=== PATIENT | male | born 1960 | race Asian ===

== ENCOUNTER → 2016-09-27 | Outpatient (CLI) | payer BC ==
[~2016-09-27] MED LIST: GLIP-116 PO; RAMI10CA38 PO; ROSU10TA16 PO; SITA50TA28 PO
[2016-09-27 09:18] LABS: Basophils # (auto) 0 uL; Basophils % (auto) 0.4 % (0.0-2.0); Eosinophils # (auto) 0.1 uL; Eosinophils % (auto) 1.1 % (0.0-7.0); Hematocrit 42.9 % (41.0-53.0); Lymphocytes % (auto) 45.1 % (10.0-50.0); Mean Corpuscular Hemoglobin 28.5 pg (28.0-32.0); Mean Corpuscular Hgb Conc. 32.7 g/dL (32.0-36.0); Mean Corpuscular Volume 87.2 fL (80.0-100.0); Mean Platelet Volume 8.9 fL (7.4-10.4); Monocytes # (auto) 0.4 uL; Monocytes % (auto) 5.5 % (0.0-12.0); Neutrophils # (auto) 3.2 uL; Neutrophils % (auto) 47.9 % (37.0-80.0); Platelet Count (auto) 278 10^3/uL (140-450); Red Cell Distribution Width 13.7 % (11.6-16.0); White Blood Cell 6.6 10^3/uL (4.4-10.8)
[2016-09-27 09:46] LABS: Albumin 3.9 g/dL (3.4-5.0); BUN/Creatinine Ratio 22.5; Bilirubin, Total 0.5 mg/dL (0.2-1.0); Calcium 8.9 mg/dL (8.5-10.1); Potassium 4.1 mmol/L (3.5-5.1); Total Protein 7.3 g/dL (6.4-8.2)
[2016-09-27 10:03] LABS: Urine Protein/Creatinine Ratio 0.17
== END | disposition home or self-care (01) ==
LOC: LAB 07:40
DX: E55.9 Vitamin D deficiency, unspecified (principal); E53.8 Deficiency of other specified B group vitamins; E11.22 Type 2 diabetes mellitus with diabetic chronic kidney disease; E78.2 Mixed hyperlipidemia; N18.2 Chronic kidney disease, stage 2 (mild)
CPT/HCPCS: 36415; 80053; 82043; 82306; 82570; 82607; 83036; 84156; 84443; 85025

== ENCOUNTER → 2017-03-29 | Outpatient (CLI) | payer BC ==
[2017-03-29 08:28] LABS: Basophils # (auto) 0 uL; Basophils % (auto) 0.4 % (0.0-2.0); Eosinophils # (auto) 0.1 uL; Eosinophils % (auto) 0.8 % (0.0-7.0); Hematocrit 41.1 % (41.0-53.0); Lymphocytes # (auto) 1.9 uL; Lymphocytes % (auto) 22.9 % (10.0-50.0); Mean Corpuscular Hemoglobin 29.8 pg (28.0-32.0); Mean Corpuscular Hgb Conc. 34.1 g/dL (32.0-36.0); Mean Corpuscular Volume 87.5 fL (80.0-100.0); Mean Platelet Volume 7.9 fL (6.9-10.8); Monocytes # (auto) 0.4 uL; Monocytes % (auto) 5.1 % (0.0-12.0); Neutrophils # (auto) 5.8 uL; Neutrophils % (auto) 70.8 % (37.0-80.0); Platelet Count (auto) 245 10^3/uL (140-450); Red Cell Distribution Width 13.6 % (11.8-14.3); White Blood Cell 8.2 10^3/uL (4.4-10.8)
[2017-03-29 09:28] LABS: BUN/Creatinine Ratio 18.1; Bilirubin, Total 0.5 mg/dL (0.2-1.0); Calcium 9.1 mg/dL (8.5-10.1); Potassium 4.4 mmol/L (3.5-5.1); Total Protein 7.6 g/dL (6.4-8.2)
== END | disposition home or self-care (01) ==
LOC: LAB 08:07
DX: E78.2 Mixed hyperlipidemia (principal); E11.22 Type 2 diabetes mellitus with diabetic chronic kidney disease; I12.9 Hypertensive chronic kidney disease with stage 1 through stage 4 chronic kidney disease, or unspecified chronic kidney disease; N18.2 Chronic kidney disease, stage 2 (mild); Z79.899 Other long term (current) drug therapy
CPT/HCPCS: 36415; 80053; 80061; 82043; 82306; 82570; 82607; 83036; 84443; 85025

== ENCOUNTER 2017-07-23 05:25 | Emergency (ER) | payer BC ==
[~2017-07-23] VITALS: Ht 165.1 cm; Wt 59.0 kg
[2017-07-23 05:55] LABS: Basophils # (auto) 0.1 uL; Basophils % (auto) 0.5 % (0.0-2.0); Eosinophils # (auto) 0.1 uL; Eosinophils % (auto) 0.5 % (0.0-7.0); Hematocrit 42.8 % (41.0-53.0); Hemoglobin 14.3 g/dL (13.5-17.5); Lymphocytes # (auto) 2.4 uL; Lymphocytes % (auto) 20.1 % (10.0-50.0); Mean Corpuscular Hemoglobin 29.2 pg (28.0-32.0); Mean Corpuscular Hgb Conc. 33.5 g/dL (32.0-36.0); Mean Corpuscular Volume 87.3 fL (80.0-100.0); Monocytes # (auto) 0.5 uL; Monocytes % (auto) 4.1 % (0.0-12.0); Neutrophils # (auto) 8.8 uL; Neutrophils % (auto) 74.8 % (37.0-80.0); Platelet Count (auto) 248 10^3/uL (140-450); Red Blood Cells 4.91 10^6/uL (4.5-5.90); Red Cell Distribution Width 13.6 % (11.8-14.3); White Blood Cell 11.8 10^3/uL (4.4-10.8)
[2017-07-23] MEDS ORDERED: HYDROmorphone HCL 2 MG/ML VL ONE (05:59)
[2017-07-23] MEDS ORDERED: ONDANSETRON HCL 4 MG/2 ML VIAL IV ONE (06:00)
[2017-07-23] MEDS ORDERED: HYDROmorphone HCL 2 MG/ML VL IV ONE (06:00)
[2017-07-23] MEDS ORDERED: SODIUM CHLORIDE 0.9% 1,000 ML IV ONE ×3 (06:00→06:49)
[2017-07-23 06:17] LABS: Alanine Aminotransferase 32 U/L (16-61); Albumin 4.1 g/dL (3.4-5.0); Alkaline Phosphatase 55 U/L (45-117); Amylase 76 U/L (25-115); Anion Gap 12 (5-15); Aspartate Aminotransferase 18 U/L (15-37); BUN/Creatinine Ratio 18.1; Bilirubin, Total 0.4 mg/dL (0.2-1.0); Blood Urea Nitrogen 19 mg/dL (7-18); Calcium 8.8 mg/dL (8.5-10.1); Carbon Dioxide 26 mmol/L (21-32); Chloride 102 mmol/L (98-107); GFR African American 94 mL/min; GFR Non-African American 77 mL/min; Glucose 202 mg/dL (74-106); Lipase 300 U/L (73-393); Magnesium 2.3 mg/dL (1.6-2.6); Potassium 3.6 mmol/L (3.5-5.1); Sodium 140 mmol/L (136-145); Total Protein 7.9 g/dL (6.4-8.2)
[2017-07-23] MEDS ORDERED: KETOROLAC TROMETH 30 MG/ML 1ML VIAL IV ONE ×2 (07:00→10:15)
[2017-07-23] MEDS ORDERED: PROMETHAZINE HCL 25 MG/ML 1ML IV ONE (07:00)
[2017-07-23] MEDS ORDERED: PIPERACILLIN-TAZOB 3.375GM 50 ML IV ONE (07:00)
[2017-07-23] MEDS ORDERED: InsuLIN REG 1unit/0.01ml Soln (100units/ml) SC ONE (09:15)
[2017-07-23] MEDS ORDERED: TAMSULOSIN HYDROCHLORIDE 0.4 MG CAP PO ONE (12:00)
[2017-07-23 15:26] VITALS: BP 98/58
== END 2017-07-23 15:45 | disposition home or self-care (01) ==
LOC: EDUNIT# 05:27 → ER 05:27
DX: N20.0 Calculus of kidney (principal); E11.9 Type 2 diabetes mellitus without complications; Z90.49 Acquired absence of other specified parts of digestive tract
CPT/HCPCS: 36415; 74176; 76705; 76870; 80053; 82150; 83036; 83690; 83735; 84484; 85025; 87040; 93005; 93306; 96361; 96365; 96366; 96372; 96375; 96376; 99285; J1170; J1815; J1885; J2405; J2543; J2550; J7030

== ENCOUNTER → 2017-10-05 | Day surgery (SDC) | payer BC ==
[2017-10-02 11:42] LABS: Basophils # (auto) 0 uL; Basophils % (auto) 0.3 % (0.0-2.0); Eosinophils # (auto) 0.1 uL; Eosinophils % (auto) 1.1 % (0.0-7.0); Hemoglobin 13.8 g/dL (13.5-17.5); Lymphocytes # (auto) 2.9 uL; Lymphocytes % (auto) 26.6 % (10.0-50.0); Mean Corpuscular Hemoglobin 28.1 pg (28.0-32.0); Mean Corpuscular Hgb Conc. 32.9 g/dL (32.0-36.0); Mean Corpuscular Volume 85.6 fL (80.0-100.0); Monocytes # (auto) 0.5 uL; Monocytes % (auto) 4.1 % (0.0-12.0); Neutrophils # (auto) 7.4 uL; Neutrophils % (auto) 67.9 % (37.0-80.0); Nucleated Red Blood Cells % 0.1 %; Platelet Count (auto) 311 10^3/uL (140-450); Red Cell Distribution Width 13.5 % (11.8-14.3)
[2017-10-02 11:43] LABS: Urine Bacteria NONE SEEN /hpf (None Seen); Urine Blood Negative /uL (Negative); Urine Specific Gravity 1.008 (1.001-1.035); Urine WBC 2 /hpf (0 - 3)
[2017-10-02 11:57] LABS: INR 0.97 (0.9-1.15); Partial Thromboplastin Time 27.8 sec (22.64-33.71); Prothrombin Time 10.6 sec (9.37-12.3)
[~2017-10-05] VITALS: Ht 162.6 cm; Wt 59.0 kg
[~2017-10-05] MED LIST changes: +ASPI81TA27 PO; +FLUMAZENIL 0.1 MG/ML INJ 10ML MDV IV ONE; +LIDOCAINE VISCOUS 2% 15ML UD ONE; +NALOXONE HCL 0.4 MG/ML VIAL ONE; +diphenhdrAMINE HCL 50 MG/1 ML VL ONE
[2017-10-05] MEDS: fentaNYL CITRATE 100 MCG/2 ML VL ONE ×3 (08:58→09:05)
[2017-10-05] MEDS: MIDAZOLAM HCL 5 MG/ML-1ML VIAL ONE ×3 (08:58→09:05)
[2017-10-05 09:46] VITALS: BP 128/83
== END | disposition home or self-care (01) ==
LOC: GI 07:44
PROVIDERS: ATTEND Internal Medicine Gastroenterology
DX: Z12.11 Encounter for screening for malignant neoplasm of colon (principal); K64.8 Other hemorrhoids; K29.70 Gastritis, unspecified, without bleeding; E66.9 Obesity, unspecified; Z90.49 Acquired absence of other specified parts of digestive tract; Z88.0 Allergy status to penicillin
CPT/HCPCS: 36415; 43239; 45378; 81001; 82962; 85025; 85610; 85730; J1200; J2250; J3010; J7030; 99152

== ENCOUNTER → 2018-01-25 | Outpatient (CLI) | payer BC ==
[~2018-01-25] MED LIST changes: -FLUMAZENIL 0.1 MG/ML INJ 10ML MDV IV ONE; -LIDOCAINE VISCOUS 2% 15ML UD ONE; -NALOXONE HCL 0.4 MG/ML VIAL ONE; -diphenhdrAMINE HCL 50 MG/1 ML VL ONE
[2018-01-25 09:17] LABS: Urine WBC None Seen /hpf (0 - 3)
[2018-01-25 09:33] LABS: Basophils # (auto) 0 uL; Basophils % (auto) 0.4 % (0.0-2.0); Eosinophils # (auto) 0.1 uL; Eosinophils % (auto) 1.3 % (0.0-7.0); Hematocrit 42.7 % (41.0-53.0); Hemoglobin 14.3 g/dL (13.5-17.5); Lymphocytes # (auto) 2.5 uL; Lymphocytes % (auto) 36.9 % (10.0-50.0); Mean Corpuscular Hemoglobin 28.7 pg (28.0-32.0); Mean Corpuscular Hgb Conc. 33.5 g/dL (32.0-36.0); Mean Corpuscular Volume 85.6 fL (80.0-100.0); Monocytes # (auto) 0.4 uL; Monocytes % (auto) 6.2 % (0.0-12.0); Neutrophils # (auto) 3.8 uL; Neutrophils % (auto) 55.2 % (37.0-80.0); Nucleated Red Blood Cells % 0.1 %; Platelet Count (auto) 257 10^3/uL (140-450); Red Blood Cells 4.98 10^6/uL (4.5-5.90); Red Cell Distribution Width 14.2 % (11.8-14.3); White Blood Cell 6.8 10^3/uL (4.4-10.8)
[2018-01-25 10:03] LABS: Urine Bacteria NONE SEEN /hpf (None Seen); Urine Blood Negative /uL (Negative); Urine Specific Gravity 1.013 (1.001-1.035)
[2018-01-25 10:13] LABS: BUN/Creatinine Ratio 14.8; Bilirubin, Total 0.4 mg/dL (0.2-1.0); Potassium 4.3 mmol/L (3.5-5.1); Total Protein 7.9 g/dL (6.4-8.2); Uric Acid 5.8 mg/dL (3.5-7.2)
== END | disposition home or self-care (01) ==
LOC: LAB 08:18
PROVIDERS: ATTEND Internal Medicine
DX: E11.22 Type 2 diabetes mellitus with diabetic chronic kidney disease (principal); I12.9 Hypertensive chronic kidney disease with stage 1 through stage 4 chronic kidney disease, or unspecified chronic kidney disease; N18.2 Chronic kidney disease, stage 2 (mild); Z79.82 Long term (current) use of aspirin
CPT/HCPCS: 36415; 80053; 80061; 81001; 82043; 82306; 83036; 83970; 84153; 84550; 85025

== ENCOUNTER → 2018-10-16 | Outpatient (CLI) | payer BC ==
[2018-10-16 09:53] LABS: Albumin 4.1 g/dL (3.4-5.0); Calcium 9.3 mg/dL (8.5-10.1); Potassium 4.6 mmol/L (3.5-5.1)
[2018-10-16 09:56] LABS: BUN/Creatinine Ratio 21.1; Bilirubin, Total 0.5 mg/dL (0.2-1.0); Total Protein 7.7 g/dL (6.4-8.2)
== END | disposition home or self-care (01) ==
LOC: LAB 08:24
DX: E10.65 Type 1 diabetes mellitus with hyperglycemia (principal)
CPT/HCPCS: 36415; 80053; 82043; 82570; 83036

== ENCOUNTER → 2019-06-25 | Outpatient (CLI) | payer BC ==
[~2019-06-25] MED LIST changes: +ASPI-404 PO; -ASPI81TA27 PO; -GLIP-116 PO; +GLIP10TA9 PO
[2019-06-25 09:49] LABS: Basophils # (auto) 0 uL; Basophils % (auto) 0.7 % (0.0-2.0); Eosinophils # (auto) 0.1 uL; Eosinophils % (auto) 1.7 % (0.0-7.0); Hematocrit 41.1 % (41.0-53.0); Lymphocytes # (auto) 2.4 uL; Lymphocytes % (auto) 50.2 % (10.0-50.0); Mean Corpuscular Hgb Conc. 34.1 g/dL (32.0-36.0); Mean Corpuscular Volume 88.1 fL (80.0-100.0); Monocytes # (auto) 0.3 uL; Monocytes % (auto) 6.7 % (0.0-12.0); Neutrophils % (auto) 40.7 % (37.0-80.0); Nucleated Red Blood Cells % 0.2 %; Platelet Count (auto) 240 10^3/uL (140-450); Red Blood Cells 4.67 10^6/uL (4.5-5.90); Red Cell Distribution Width 13.1 % (11.8-14.3); White Blood Cell 4.8 10^3/uL (4.4-10.8)
[2019-06-25 09:52] LABS: Urine Bacteria NONE SEEN /hpf (None Seen); Urine Blood Negative /uL (Negative); Urine Mucus FEW (None Seen); Urine Specific Gravity 1.011 (1.001-1.035); Urine WBC <1 /hpf (0 - 3)
[2019-06-25 10:17] LABS: BUN/Creatinine Ratio 17.2; Calcium 9.4 mg/dL (8.5-10.1); Potassium 4.6 mmol/L (3.5-5.1)
[2019-06-25 10:22] LABS: Bilirubin, Total 0.5 mg/dL (0.2-1.0); Total Protein 7.5 g/dL (6.4-8.2)
== END | disposition home or self-care (01) ==
LOC: LAB 09:22
PROVIDERS: ATTEND Internal Medicine
DX: Z12.11 Encounter for screening for malignant neoplasm of colon (principal); Z12.5 Encounter for screening for malignant neoplasm of prostate; K76.0 Fatty (change of) liver, not elsewhere classified; E11.29 Type 2 diabetes mellitus with other diabetic kidney complication; R80.9 Proteinuria, unspecified
CPT/HCPCS: 36415; 80053; 80061; 81001; 82043; 83036; 84153; 84443; 85025

== ENCOUNTER → 2019-07-09 | Outpatient (CLI) | payer BC | END | disposition home or self-care (01) | LOC: LAB 10:41 | PROVIDERS: ATTEND Internal Medicine | DX: Z12.11 Encounter for screening for malignant neoplasm of colon (principal); E11.29 Type 2 diabetes mellitus with other diabetic kidney complication; K76.0 Fatty (change of) liver, not elsewhere classified; R80.9 Proteinuria, unspecified | CPT/HCPCS: 82270 ==

== ENCOUNTER 2019-12-13 23:05 | Inpatient (IN) | payer BC ==
[~2019-12-13] VITALS: Ht 160 cm; Wt 62.0 kg
[~2019-12-13 23:05] MED LIST changes: -ASPI-404 PO; +ASPI-543 PO; +GLYB2.5T71 OR; +GLYB2.5T8 OR; +METF-370 OR; +PIOG30TA20 OR; +RAMI2.5T OR; +ROSU10TA16 OR; +SITA100T7 OR
--- NOTE | 2019-12-13 23:05 | NUR ---
arrival note pt arrived via gurney, and was transferred to hospital bed. pt on 4Lnc. respirations even and nonlabored on 2Lnc.
[2019-12-13 23:30] VITALS: BP 135/77
[2019-12-14] VITALS (7 sets, daily range): BP systolic 125–140; BP diastolic 73–84
--- NOTE | 2019-12-14 | NUR ---
DR SEAY paged for orders new orders received, readback and verified.
[2019-12-14] MEDS ORDERED: NITROGLYCERIN 0.4 MG SL TAB SL PRN (00:30)
[2019-12-14] MEDS ORDERED: DEXTROSE (50%) 50ML SYRG IV PRN ×2 (01:00→09:00)
[2019-12-14] MEDS: HYDROcodone-ACET 5/325MG TAB PO PRN ×3 (01:46→21:37)
[2019-12-14] MEDS: ACCU-CHEK COMFORT CURVE STRIP VI SCH ×4 (06:30→21:36)
[2019-12-14] MEDS: InsuLIN REG 1unit/0.01ml Soln (100units/ml) SC SCH ×4 (06:32→21:39)
--- NOTE | 2019-12-14 07:16 | NUR ---
closing note pt watching television in semi fowlers with HOB at 30 degrees. condom catheter in place, patent, and draining to gravity. no complaints of discomfort at this time. Endorsed care to day shift RN.
--- NOTE | 2019-12-14 07:30 | NUR ---
Opening Shift Note Assumed care of patient, awake and alert. No S/S of distress/SOB. Pain management options discussed with patient. NG tube in place and locked. Instructed on POC and to call for assist PRN, will continue to monitor for changes Q1hr and PRN.
[2019-12-14] MEDS ORDERED: TEMAZEPAM 15 MG CAP PO PRN (09:00)
[2019-12-14] MEDS ORDERED: LACTULOSE 20Gm/30ML SOLN PO PRN (09:00)
[2019-12-14] MEDS ORDERED: ALBUTEROL SULF 2.5 MG/0.5ML(0.5%) NEB SOLN NEB PRN (09:00)
[2019-12-14] MEDS ORDERED: LABETALOL HCL 5 MG/ML ML 20ML VIAL IV PRN (09:00)
[2019-12-14] MEDS ORDERED: ACETAMINOPHEN 500 MG TAB PO PRN (09:00)
[2019-12-14] MEDS ORDERED: ONDANSETRON HCL 4 MG/2 ML VIAL IV PRN (09:00)
[2019-12-14] MEDS ORDERED: PANTOPRAZOLE 40 MG/10 ML VIAL INJ IV SCH (10:00)
[2019-12-14] MEDS ORDERED: ALBUTEROL SULF 2.5 MG/0.5ML(0.5%) NEB SOLN NEB SCH (10:00)
[2019-12-14] MEDS ORDERED: IPRATROPIUM BROM 0.5 MG/2.5ML INH SOL NEB SCH (10:00)
[2019-12-14] MEDS: levoFLOXacin 500MG 100 ML IV SCH (10:19)
[2019-12-14] MEDS: SODIUM CHLORIDE 0.9% 1,000 ML IV SCH ×2 (10:19→22:51)
[2019-12-14] MEDS: ASPirin 81 mg TAB PO SCH (10:20)
--- NOTE | 2019-12-14 10:30 | NUR ---
PATIENT MOVED BACK TO BED FROM SITTING IN CHAIR AT BEDSIDE. STANDBY ASSISTANCE. PATIENT TOLERATED TRANSFER WELL.
--- NOTE | 2019-12-14 11:04 | NUR ---
SWALLOW EVALUATED. PATIENT HAS NATURAL TEETH, UPPER AND LOWER. PATIENT ABLE TO FOLLOW DIRECTIONS. PATIENT ABLE TO TOLERATE MECHANICAL SOFT DIET TEXTURE WITH THIN LIQUIDS WITH NO OVERT SIGNS OR SYMPTOMS OF ASPIRATION. NURSING NOTIFIED.
[2019-12-14] MEDS: ALBUTEROL SULF 2.5 MG/0.5ML(0.5%) NEB SOLN NEB SCH ×2 (11:08→18:04)
[2019-12-14] MEDS: IPRATROPIUM BROM 0.5 MG/2.5ML INH SOL NEB SCH ×2 (11:08→18:04)
--- NOTE | 2019-12-14 11:28 | NUR ---
NG TUBE REMOVED FROM LEFT NARE. PATIENT TOLERATING PO AND PASSED SWALLOW EVALUATION. ORDERS RECEIVED FROM DR. GUTIERREZ TO REMOVE THE NG TUBE.
[2019-12-14 11:56] LABS: Basophils # (auto) 0.1 10 ^3/uL (0-0.2); Basophils % (auto) 0.4 % (0.0-2.0); Eosinophils # (auto) 0 10 ^3/uL (0-0.8); Eosinophils % (auto) 0.2 % (0.0-7.0); Hematocrit 28.5 % (41.0-53.0); Hemoglobin 9.4 g/dL (13.5-17.5); Lymphocytes # (auto) 1.4 10 ^3/uL (0.4-5.4); Lymphocytes % (auto) 7.4 % (10.0-50.0); Mean Corpuscular Hgb Conc. 32.9 g/dL (32.0-36.0); Mean Corpuscular Volume 88.1 fL (80.0-100.0); Monocytes # (auto) 1.4 10 ^3/uL (0-1.3); Monocytes % (auto) 7.5 % (0.0-12.0); Neutrophils # (auto) 15.9 10 ^3/uL (1.6-8.6); Neutrophils % (auto) 84.5 % (37.0-80.0); Nucleated Red Blood Cells % 0.1 %; Platelet Count (auto) 322 10^3/uL (140-450); Red Blood Cells 3.24 10^6/uL (4.5-5.90); Red Cell Distribution Width 15.1 % (11.8-14.3); White Blood Cell 18.8 10^3/uL (4.4-10.8)
[2019-12-14 12:12] LABS: INR 1.13 (0.9-1.15); Partial Thromboplastin Time 25.4 sec (23.64-32.05)
[2019-12-14 12:17] LABS: Albumin 1.8 g/dL (3.4-5.0); Calcium 7.8 mg/dL (8.5-10.1); Magnesium 2.9 mg/dL (1.6-2.6); Potassium 3.5 mmol/L (3.5-5.1)
[2019-12-14 12:20] LABS: BUN/Creatinine Ratio 45.5; Bilirubin, Total 0.9 mg/dL (0.2-1.0); Total Protein 5.5 g/dL (6.4-8.2)
--- NOTE | 2019-12-14 14:45 | NUR ---
CONDOM CATHETER BECAME DISLODGED. PATIENT GIVEN URINAL AND ENCOURAGED TO USE IT. WILL CONTINUE TO MONITOR AND SEE IF THE PATIENT CAN TOLERATE USING URINAL.
--- NOTE | 2019-12-14 15:00 | NUR ---
PATIENT WAS ALREADY OUT OF BED X 2 TODAY. PATIENT REQUESTS P.T. EVALUATION BE DONE TOMORROW.
[2019-12-14] MEDS: ATORVASTATIN 20 MG TAB PO SCH (17:44)
--- NOTE | 2019-12-14 18:27 | NUR ---
Dr. Matt at bedside.
--- NOTE | 2019-12-14 19:15 | NUR ---
opening note pt A&Ox4. respirations even and nonlabored on 2Lnc. no complaints of pain or discomfort at this time, will continue to monitor. POC discussed with pt. verbalized understanding. bed in low locked position, call light within reach.
[2019-12-15] MEDS: ALBUTEROL SULF 2.5 MG/0.5ML(0.5%) NEB SOLN NEB SCH ×4 (00:24→18:01)
[2019-12-15] MEDS: IPRATROPIUM BROM 0.5 MG/2.5ML INH SOL NEB SCH ×4 (00:24→18:01)
--- NOTE | 2019-12-15 02:01 | NUR ---
pt up to bedside chair.
[2019-12-15 04:52] VITALS: BP 122/81
[2019-12-15] MEDS: ACCU-CHEK COMFORT CURVE STRIP VI SCH ×4 (06:09→22:12)
[2019-12-15] MEDS: InsuLIN REG 1unit/0.01ml Soln (100units/ml) SC SCH ×4 (06:16→22:22)
--- NOTE | 2019-12-15 07:25 | NUR ---
respiratory culture sent
--- NOTE | 2019-12-15 07:26 | NUR ---
CLOSING NOTE pt is sitting in bedside chair, watching tv. respirations are even and nonlabored on 2Lnc. no c/o of pain or discomfort at this time. endorsed care to day shift RN.
--- NOTE | 2019-12-15 07:40 | NUR ---
OPENING SHIFT NOTE: PATIENT RESTING AT SIDE OF THE BED IN CHAIR. UPDATED ON PLAN OF CARE. PATIENT VERBALIZED UNDERSTANDING. PAIN REPORTING 6/10 LEFT ARM. WILL MEDICATED ORDERED. THIS RN ADDRESSED CONCERNS, ASISTED WITH HOT WASH CLOTH PARTIAL UPPER BODY BATH. PATIENT CALL LIGHT PLACED WITHIN REACH, FALL PRECAUTIONS IN PLACE. WILL CONTINUE TO MONITOR.
--- NOTE | 2019-12-15 08:10 | NUR ---
MD. Roshni TRNA.
--- NOTE | 2019-12-15 08:40 | NUR ---
MD KUHN ROUNDING.
[2019-12-15] MEDS: HYDROcodone-ACET 5/325MG TAB PO PRN ×3 (09:03→23:17)
[2019-12-15] MEDS: ASPirin 81 mg TAB PO SCH (09:03)
[2019-12-15 09:09] VITALS: BP 137/80
--- NOTE | 2019-12-15 10:03 | NUR ---
PATIENT BACK FROM MRI.
--- NOTE | 2019-12-15 10:10 | NUR ---
FULL LINEN CHANGE COMPLETE. FULL BED BATH. PATIENT TOLERATED WELL.
[2019-12-15] MEDS: levoFLOXacin 500MG 100 ML IV SCH (10:15)
--- NOTE | 2019-12-15 11:30 | NUR ---
URINE SENT TO LAB
[2019-12-15] MEDS: Glucerna Carbsteady SHAKE Vanilla 8oz PO SCH ×2 (12:00→17:52)
[2019-12-15 12:28] VITALS: BP 125/77
[2019-12-15 14:35] LABS: Urine Bacteria NONE SEEN /hpf (None Seen); Urine Blood 1+ /uL (Negative); Urine Specific Gravity 1.034 (1.001-1.035); Urine WBC 3 /hpf (0 - 3)
--- NOTE | 2019-12-15 15:38 | NUR ---
PER MD Roshni GUTIERREZ PATIENT, "SHOULD HAVE NOTED PENICILLIN ALLERGY ON THE CHART, PATIENT HAD MILD DIARRHEA PROBABLY FROM THE PENICILLIN, PATIENT SHOULD BE ON LEVAQUIN ONLY."
--- NOTE | 2019-12-15 16:07 | NUR ---
PATIENT BACK IN BED FROM AMBULATING WITH PT. FULL FACE SHAVED. PATIENT TOLERATED WELL.
[2019-12-15 16:51] VITALS: BP 147/86
[2019-12-15] MEDS: ATORVASTATIN 20 MG TAB PO SCH (17:52)
--- NOTE | 2019-12-15 19:30 | NUR ---
Opening Shift Note Assumed care of patient, awake and alert x4. No S/S of distress/SOB or pain. Splint to the left arm. Call light is within reach, side rails up x2, bed is in lowest position. Instructed on POC and to call for assist PRN, will continue to monitor for changes Q1hr and PRN.
[2019-12-15 22:00] VITALS: BP 121/75
[2019-12-15] MEDS ORDERED: AMOXICILLIN/CLAVUL 875 MG TAB PO SCH (22:00)
--- NOTE | 2019-12-15 22:20 | NUR ---
Patient is up in the chair. Call light is within reach.
--- NOTE | 2019-12-15 23:00 | NUR ---
Patient assisted back to bed and positioned for comfort, call light is within reach.
--- NOTE | 2019-12-16 | NUR ---
Respiratory note: SCHEDULED MED NEB TX NOT GIVEN. PT WAS ASLEEP, NO RESP DISTRESS NOTED. PT WOKE UP AND STATED HE DID NOT WANT TX AT THIS TIME.
[2019-12-16 05:00] VITALS: BP 110/77
[2019-12-16] MEDS: IPRATROPIUM BROM 0.5 MG/2.5ML INH SOL NEB SCH ×4 (05:40→18:34)
[2019-12-16] MEDS: ALBUTEROL SULF 2.5 MG/0.5ML(0.5%) NEB SOLN NEB SCH ×4 (05:40→18:35)
[2019-12-16] MEDS: ACCU-CHEK COMFORT CURVE STRIP VI SCH ×2 (06:45→17:33)
[2019-12-16] MEDS: InsuLIN REG 1unit/0.01ml Soln (100units/ml) SC SCH ×2 (07:00→17:56)
[2019-12-16] MEDS: Glucerna Carbsteady SHAKE Vanilla 8oz PO SCH ×2 (08:03→12:26)
[2019-12-16 09:00] VITALS: BP 145/90
[2019-12-16] MEDS: ASPirin 81 mg TAB PO SCH (09:34)
[2019-12-16] MEDS: HYDROcodone-ACET 5/325MG TAB PO PRN (09:39)
[2019-12-16] MEDS ORDERED: DEXTROSE (50%) 50ML SYRG IV PRN (10:00)
[2019-12-16] MEDS ORDERED: levoFLOXacin 500MG 100 ML IV ONE (10:00)
[2019-12-16 10:33] LABS: Basophils # (auto) 0 10 ^3/uL (0-0.2); Basophils % (auto) 0.2 % (0.0-2.0); Eosinophils # (auto) 0.1 10 ^3/uL (0-0.8); Eosinophils % (auto) 0.4 % (0.0-7.0); Hematocrit 29.9 % (41.0-53.0); Hemoglobin 9.7 g/dL (13.5-17.5); Lymphocytes # (auto) 1.5 10 ^3/uL (0.4-5.4); Lymphocytes % (auto) 7.9 % (10.0-50.0); Mean Corpuscular Hemoglobin 28.9 pg (28.0-32.0); Mean Corpuscular Hgb Conc. 32.5 g/dL (32.0-36.0); Monocytes # (auto) 0.9 10 ^3/uL (0-1.3); Monocytes % (auto) 4.6 % (0.0-12.0); Neutrophils # (auto) 16.3 10 ^3/uL (1.6-8.6); Neutrophils % (auto) 86.9 % (37.0-80.0); Nucleated Red Blood Cells % 0.1 %; Platelet Count (auto) 445 10^3/uL (140-450); Red Blood Cells 3.36 10^6/uL (4.5-5.90); Red Cell Distribution Width 15.6 % (11.8-14.3); White Blood Cell 18.7 10^3/uL (4.4-10.8)
[2019-12-16 10:46] LABS: Calcium 7.9 mg/dL (8.5-10.1); INR 1.12 (0.9-1.15); Potassium 3.8 mmol/L (3.5-5.1)
[2019-12-16 10:51] LABS: BUN/Creatinine Ratio 28.9; Bilirubin, Total 0.9 mg/dL (0.2-1.0); Total Protein 6.2 g/dL (6.4-8.2)
[2019-12-16 11:21] LABS: Amylase 246 U/L (25-115); Lipase 3053 U/L (73-393)
[2019-12-16] MEDS ORDERED: DOXYCYCLINE 100 MG TAB/CAP PO ONE (11:30)
[2019-12-16] MEDS ORDERED: ACCU-CHEK COMFORT CURVE STRIP VI SCH (11:30)
[2019-12-16] MEDS ORDERED: InsuLIN REG 1unit/0.01ml Soln (100units/ml) SC SCH ×2 (11:30→22:00)
[2019-12-16] MEDS ORDERED: IOHEXOL 300 MG/ML 100ML BOTTLE IJ ONE (12:39)
[2019-12-16 13:00] VITALS: BP 129/79
[2019-12-16] MEDS ORDERED: MEROPENEM 1GM IVPB 100 ML IV ONE (14:45)
[2019-12-16] MEDS ORDERED: TPN PER PHARMACY 0 ML IV SCH (14:45)
--- NOTE | 2019-12-16 17:00 | NUR ---
MEROPENEM LATE... CALLED PHARMACY EARLIER REGARDING ANTIBIOTIC AND THEY SAID THEY WOULD SEND IT. THIS NURSE NEVER RECEIVED IT. CHECKED TUBE SYSTEM AND MED ROOM SEVERAL TIMES. CALLED PHARMACY AGAIN NOW AND THEY SAID THEY WOULD SEND IT UP. WILL SEND TUBE.
[2019-12-16 17:18] VITALS: BP 155/93
[2019-12-16] MEDS: ACETAMINOPHEN 325 MG TAB PO PRN (17:53)
[2019-12-16] MEDS ORDERED: DEXTROSE (50%) 50ML SYRG IV SCH (18:00)
[2019-12-16] MEDS ORDERED: LIDOCAINE 1% (LOCAL ANESTH.) PF 5ml SDV ID ONE (18:45)
--- NOTE | 2019-12-16 18:47 | NUR ---
PICC line placement Patient educated on need for PICC line placement. All risks and benefits explained and all questions and concerns addressed prior to procedure. Noted past medical history and allergies with no contraindications. INR and Plt counts within acceptable range. 5fr PICC line inserted via right brachial vein using [employer] US and Tip Location System. Sterile technique with maximum barrier precautions utilized. Blood return obtained from each of the two lumens and each flushed easily with NS using proper technique. PICC secured with Stat-lock; biodisc and occlusive dressing applied. Stat portable chest x-ray obtained for PICC tip placement. *Baseline Arm Circumference 26cm. Internal length 43cm. External length 0cm. PICC lot #[id number]
--- NOTE | 2019-12-16 18:49 | NUR ---
Okay to use PICC line Xray completed and reviewed. Okay to use PICC line. Primary RN notified.
--- NOTE | 2019-12-16 19:35 | NUR ---
Opening Shift Note Assumed care of patient, awake and alert X4. No S/S of distress/SOB or pain. Call light is within reach, side rails up x2, bed is in the lowest position. Instructed on POC and to call for assist PRN, will continue to monitor for changes Q1hr and PRN.
[2019-12-16] MEDS ORDERED: CLINIMIX PER PHARMACY IV NR (20:00)
[2019-12-16 22:00] VITALS: BP 139/77
[2019-12-16] MEDS ORDERED: DOXYCYCLINE 100 MG TAB/CAP PO SCH (22:00)
--- NOTE | 2019-12-16 22:13 | NUR ---
Called pharmacy regarding 0 Meropenem, spoke with Estephania, she said they are mixing it right now and will send it in the bullet.
[2019-12-16] MEDS: SODIUM CHLOR 0.9% PF (SALINE LOCK) 10ML VIAL/SYR IV SCH (22:46)
[2019-12-16] MEDS: MEROPENEM 2 GM in SODIUM CHL 0.9% 250 ML IV SCH (22:46)
[2019-12-17] MEDS: ACCU-CHEK COMFORT CURVE STRIP VI SCH ×4 (00:17→18:00)
[2019-12-17] MEDS: InsuLIN REG 1unit/0.01ml Soln (100units/ml) SC SCH ×4 (00:18→18:00)
[2019-12-17] MEDS: IPRATROPIUM BROM 0.5 MG/2.5ML INH SOL NEB SCH ×4 (01:00→18:47)
[2019-12-17] MEDS: ALBUTEROL SULF 2.5 MG/0.5ML(0.5%) NEB SOLN NEB SCH ×4 (01:00→18:47)
[2019-12-17 05:00] VITALS: BP 147/87
[2019-12-17 05:59] LABS: Basophils # (auto) 0.1 10 ^3/uL (0-0.2); Basophils % (auto) 0.5 % (0.0-2.0); Eosinophils # (auto) 0.1 10 ^3/uL (0-0.8); Eosinophils % (auto) 0.3 % (0.0-7.0); Hematocrit 28.5 % (41.0-53.0); Hemoglobin 9.2 g/dL (13.5-17.5); Lymphocytes # (auto) 1.2 10 ^3/uL (0.4-5.4); Lymphocytes % (auto) 7.1 % (10.0-50.0); Mean Corpuscular Hemoglobin 28.9 pg (28.0-32.0); Mean Corpuscular Hgb Conc. 32.5 g/dL (32.0-36.0); Mean Corpuscular Volume 88.8 fL (80.0-100.0); Monocytes # (auto) 0.9 10 ^3/uL (0-1.3); Monocytes % (auto) 5.6 % (0.0-12.0); Neutrophils # (auto) 14.5 10 ^3/uL (1.6-8.6); Neutrophils % (auto) 86.5 % (37.0-80.0); Platelet Count (auto) 381 10^3/uL (140-450); Red Cell Distribution Width 15.2 % (11.8-14.3); White Blood Cell 16.8 10^3/uL (4.4-10.8)
[2019-12-17 06:21] LABS: Calcium 7.2 mg/dL (8.5-10.1); Potassium 3.4 mmol/L (3.5-5.1)
[2019-12-17 06:31] LABS: Albumin 1.7 g/dL (3.4-5.0); BUN/Creatinine Ratio 27.8; Bilirubin, Total 0.7 mg/dL (0.2-1.0); Magnesium 2.2 mg/dL (1.6-2.6); Phosphorus 3.1 mg/dL (2.5-4.90); Pre Albumin 6.4 mg/dL (20.0-40.0); Total Protein 5.2 g/dL (6.4-8.2)
--- NOTE | 2019-12-17 06:36 | NUR ---
Called pharmacy regarding 0600 Meropenem, spoke with Moira, she said they are going to mix it right now and will send it in the bullet.
[2019-12-17] MEDS: ACETAMINOPHEN 325 MG TAB PO PRN (06:50)
[2019-12-17] MEDS: MEROPENEM 2 GM in SODIUM CHL 0.9% 250 ML IV SCH ×3 (07:09→21:42)
--- NOTE | 2019-12-17 07:09 | NUR ---
Meropenem started late.
--- NOTE | 2019-12-17 08:02 | NUR ---
Received call from [facility] called to let this nurse that they received the transfer request. They are very full today, but should have a bed tomorrow. They said they would call every 12 hours to check in.
--- NOTE | 2019-12-17 08:53 | NUR ---
0850 12/17/19 - Placed patient on [facility] will call list for transfer to [facility] when bed becomes available.
[2019-12-17 09:00] VITALS: BP 158/88
--- NOTE | 2019-12-17 09:23 | NUR ---
PICC LINE CARE PICC line dressing dry and in tact with small amount of dried blood noted beneath dressing. Dressing was removed and skin cleaned, no additional bleeding noted. Dressing was changed with strict sterile technique. PICC line was retracted 2 cm. No redness or swelling noted at insertion site.
[2019-12-17] MEDS ORDERED: PANTOPRAZOLE 40 MG/10 ML VIAL INJ IV SCH (10:00)
[2019-12-17] MEDS ORDERED: levoFLOXacin 500MG 100 ML IV SCH (10:00)
[2019-12-17] MEDS: SODIUM CHLOR 0.9% PF (SALINE LOCK) 10ML VIAL/SYR IV SCH (10:10)
[2019-12-17] MEDS: PANTOPRAZOLE 40 MG/10 ML VIAL INJ IV SCH ×2 (10:18→21:42)
[2019-12-17] MEDS ORDERED: BACLOFEN 10 MG TAB PO PRN (10:45)
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
[2019-12-17 11:05] VITALS: BP 158/88
--- NOTE | 2019-12-17 12:10 | NUR ---
Nutrition Assessment Notes Please refer to link for full assessment notes. Est Energy needs: 4086-0695 kcals (23-25 kcal/kgBW) Est Protein needs: 55-69 gms/day (0.8-1.0 gm/kgBW) Will continue to monitor and reassess prn. Addendum: 12/17/19 at [address] Amended: Links added.
[2019-12-17] MEDS ORDERED: POTASSIUM CHL 20MEQ/100ML 100 ML IV ONE (12:45)
[2019-12-17 13:00] VITALS: BP 165/86
[2019-12-17] MEDS: HYDROcodone-ACET 5/325MG TAB PO PRN ×2 (15:12→21:41)
[2019-12-17 17:00] VITALS: BP 153/82
[2019-12-17] MEDS: TPN PER PHARMACY IV NR ×10 (20:00)
[2019-12-17 22:00] VITALS: BP 156/78
[2019-12-18] MEDS: ALBUTEROL SULF 2.5 MG/0.5ML(0.5%) NEB SOLN NEB SCH ×4 (00:16→18:32)
[2019-12-18] MEDS: IPRATROPIUM BROM 0.5 MG/2.5ML INH SOL NEB SCH ×4 (00:16→18:32)
[2019-12-18] MEDS: SODIUM CHLOR 0.9% PF (SALINE LOCK) 10ML VIAL/SYR IV SCH ×3 (00:24→22:12)
[2019-12-18 05:00] VITALS: BP 180/112
[2019-12-18 05:39] LABS: Basophils # (auto) 0 10 ^3/uL (0-0.2); Basophils % (auto) 0.2 % (0.0-2.0); Eosinophils # (auto) 0.1 10 ^3/uL (0-0.8); Hemoglobin 9.9 g/dL (13.5-17.5); Lymphocytes # (auto) 1.3 10 ^3/uL (0.4-5.4); Neutrophils # (auto) 13.7 10 ^3/uL (1.6-8.6)
[2019-12-18 05:41] LABS: Eosinophils % (auto) 0.4 % (0.0-7.0); Hematocrit 30.1 % (41.0-53.0); Lymphocytes % (auto) 8.1 % (10.0-50.0); Mean Corpuscular Hemoglobin 29.2 pg (28.0-32.0); Mean Corpuscular Hgb Conc. 32.8 g/dL (32.0-36.0); Mean Corpuscular Volume 88.8 fL (80.0-100.0); Monocytes # (auto) 0.9 10 ^3/uL (0-1.3); Monocytes % (auto) 5.4 % (0.0-12.0); Neutrophils % (auto) 85.9 % (37.0-80.0); Platelet Count (auto) 468 10^3/uL (140-450); Red Blood Cells 3.39 10^6/uL (4.5-5.90); Red Cell Distribution Width 15.5 % (11.8-14.3)
[2019-12-18 05:43] LABS: Potassium 3.5 mmol/L (3.5-5.1)
[2019-12-18 05:51] LABS: Albumin 1.9 g/dL (3.4-5.0); BUN/Creatinine Ratio 21.9; Bilirubin, Total 0.6 mg/dL (0.2-1.0); Calcium 7.8 mg/dL (8.5-10.1); Magnesium 2.4 mg/dL (1.6-2.6); Phosphorus 2.6 mg/dL (2.5-4.90); Total Protein 6.1 g/dL (6.4-8.2)
[2019-12-18] MEDS: ACCU-CHEK COMFORT CURVE STRIP VI SCH ×4 (06:00→17:00)
[2019-12-18] MEDS: MEROPENEM 2 GM in SODIUM CHL 0.9% 250 ML IV SCH (06:00)
[2019-12-18] MEDS: InsuLIN REG 1unit/0.01ml Soln (100units/ml) SC SCH ×4 (06:00→17:56)
--- NOTE | 2019-12-18 07:45 | NUR ---
Opening Shift Note Assumed care of patient, awake and alert. No S/S of distress/SOB or pain. Instructed on POC and to call for assist PRN, will continue to monitor for changes Q1hr and PRN. Bed locked in lowest position with two side rails up and call light in reach.
--- NOTE | 2019-12-18 07:56 | NUR ---
Reported off to RN Kaylen who Assumed care of patient who is awake and alert, vss, No S/S of distress/SOB or pain. Instructed on POC.
[2019-12-18 08:00] VITALS: BP 163/72
--- NOTE | 2019-12-18 08:09 | NUR ---
RECEIVED A CALL FROM [facility] SPOKE TO KLEBER. PER KLEBER THEY ARE STILL LOOKING FOR A BED.
[2019-12-18 09:00] VITALS: BP 163/72
[2019-12-18] MEDS: FLUCONAZOLE 200MG/100ML 100 ML IV SCH (10:43)
[2019-12-18] MEDS: PANTOPRAZOLE 40 MG/10 ML VIAL INJ IV SCH ×2 (10:43→22:12)
[2019-12-18] MEDS: HYDROcodone-ACET 5/325MG TAB PO PRN (10:44)
--- NOTE | 2019-12-18 11:00 | NUR ---
PATIENT WORKING WITH PT
[2019-12-18] MEDS: MEROPENEM 1GM IVPB 100 ML IV SCH ×2 (14:21→22:12)
--- NOTE | 2019-12-18 15:48 | NUR ---
SPOKE WITH DR ROSALES REGARDING PATIENTS HIGH BLOOD PRESSURE READINGS. 188/106 ,163/72. BP HAS BEEN TAKEN ON CALF DUE TO PICC ON RIGHT ARM, AND LEFT ARM FRACTURE. READINGS ARE HIGH ON CALF COMPARED TO THE ARM. PER DR ROSALES TRY TO TAKE ON FOREARM AND JUST MONITOR FOR NOW. PATIENT HAS NO HISTORY OF HTN.
[2019-12-18 17:00] VITALS: BP 132/84
[2019-12-18] MEDS: TPN PER PHARMACY IV NR ×10 (19:53)
[2019-12-18] MEDS ORDERED: TPN PER PHARMACY IV NR ×10 (20:00)
[2019-12-18] MEDS: INSULIN LANTUS (GLARGINE) 1 /0.01ml (100units/ml) SC SCH (22:11)
[2019-12-18 22:21] VITALS: BP 132/87
[2019-12-19] VITALS (7 sets, daily range): BP systolic 123–148; BP diastolic 76–86
[2019-12-19] MEDS: ALBUTEROL SULF 2.5 MG/0.5ML(0.5%) NEB SOLN NEB SCH ×4 (00:26→18:32)
[2019-12-19] MEDS: IPRATROPIUM BROM 0.5 MG/2.5ML INH SOL NEB SCH ×4 (00:26→18:32)
[2019-12-19] MEDS: ACCU-CHEK COMFORT CURVE STRIP VI SCH ×5 (01:31→23:22)
[2019-12-19] MEDS: InsuLIN REG 1unit/0.01ml Soln (100units/ml) SC SCH ×5 (01:33→23:22)
[2019-12-19] MEDS ORDERED: InsuLIN REG 1unit/0.01ml Soln (100units/ml) ONE (05:19)
[2019-12-19] MEDS: MEROPENEM 1GM IVPB 100 ML IV SCH ×3 (05:33→21:18)
--- NOTE | 2019-12-19 05:34 | NUR ---
blood draw sent to lab
--- NOTE | 2019-12-19 07:30 | NUR ---
Opening Shift Note Assumed care of patient, awake and alert. No S/S of distress/SOB. Pain reported. Pain management options discussed with the patient. Instructed on POC and to call for assist PRN, will continue to monitor for changes Q1hr and PRN.
--- NOTE | 2019-12-19 07:31 | NUR ---
closing note pt resting in semi fowlers with HOB at 30 degrees. pt denies pain or discomfort at this time. respirations even nonlabored on room air. bed in low locked position, call light within reach.
[2019-12-19 07:47] LABS: Eosinophils # (auto) 0.1 10 ^3/uL (0-0.8); Hemoglobin 9.1 g/dL (13.5-17.5); Monocytes # (auto) 0.7 10 ^3/uL (0-1.3); Nucleated Red Blood Cells % 0.1 %; Red Blood Cells 3.02 10^6/uL (4.5-5.90); White Blood Cell 12.1 10^3/uL (4.4-10.8)
[2019-12-19 07:49] LABS: Basophils # (auto) 0.1 10 ^3/uL (0-0.2); Basophils % (auto) 0.5 % (0.0-2.0); Eosinophils % (auto) 0.5 % (0.0-7.0); Hematocrit 30.1 % (41.0-53.0); Lymphocytes # (auto) 1.2 10 ^3/uL (0.4-5.4); Lymphocytes % (auto) 9.8 % (10.0-50.0); Mean Corpuscular Hemoglobin 30.3 pg (28.0-32.0); Mean Corpuscular Hgb Conc. 30.4 g/dL (32.0-36.0); Mean Corpuscular Volume 99.8 fL (80.0-100.0); Monocytes % (auto) 5.5 % (0.0-12.0); Neutrophils # (auto) 10.2 10 ^3/uL (1.6-8.6); Neutrophils % (auto) 83.7 % (37.0-80.0); Platelet Count (auto) 368 10^3/uL (140-450)
--- NOTE | 2019-12-19 08:27 | NUR ---
need to redraw blood from picc line due to possibly contaminated sample.
--- NOTE | 2019-12-19 10:00 | NUR ---
Pt declined [facility] PT tx & requested this [facility] to return "After lunch. Addendum: 12/19/19 at 1005 by Yordan Aparicio [facility] Amended: Links added.
[2019-12-19] MEDS: PANTOPRAZOLE 40 MG/10 ML VIAL INJ IV SCH ×2 (10:04→21:19)
[2019-12-19] MEDS: SODIUM CHLOR 0.9% PF (SALINE LOCK) 10ML VIAL/SYR IV SCH ×2 (10:04→21:19)
[2019-12-19] MEDS: FLUCONAZOLE 200MG/100ML 100 ML IV SCH (10:04)
--- NOTE | 2019-12-19 11:23 | NUR ---
Nutrition Followup Note Wt 67.5kg Pt was alert and oriented at time of rounds. Pt reports appetite is okay. Pt po intake is inadequate aeb pt with NPO diet order. Pt with TPN at 54ml/hr to provide 1190 kcal, 70g protein, 1010 NCP. This provides 69-74% of energy needs and 101-127% of protein needs. Est Energy needs: 0792-3890 kcals (23-25 kcal/kgBW) Est Protein needs: 55-69 gms/day (0.8-1.0 gm/kgBW) Will continue to monitor and reassess prn. Labs: GLUC 203H, Ca 7.8L, Alb 1.9L BM: 4 BMs 7/3 per Rn note Skin: BS 20 low risk, full details in child care worker note PES: 1) Increased nutrient needs r/t pt with no PO intake aeb pt is NPO for medical procedure 2) Altered nutrition related lab values r/t current/chronic medical condition aeb hypokalemia, hyperchloremia, hyperglycemia, elev A1c,severe hypoalbuminemia 3) Food and nutrition related knowledge deficit r/t dietary non-compliance aeb hyperglycemia, elev A1c Comments Will continue to monitor PO status, skin status, pertinent labs and weight trends. Will f/u in 3-5 days. 1) Continue to closely monitor pt NPO status 2) Once oral diet is resumed, continue to closely monitor pt PO intake to meet at least 75% of meals 3) If albumin continues trending down consider Prostat 1pkt BID 4) Refer pt to RD/CDE for nutrition education upon D/C 5) Continue current plan of care Expected Outcomes/Goals: Pt to advance to oral diet Pt appetite to remain at least 75% of meals eaten Pt to see a RD/CDE for nutrition education after D/C Pt labs to improve
[2019-12-19] MEDS: traMADol HCL 50 MG TAB PO PRN (12:00)
--- NOTE | 2019-12-19 16:20 | NUR ---
IV removal IV DC'd with clean sterile technique, catheter fully intact. Pressure dressing applied to site. Patient tolerated well. NOTE: IV line in place since december 11. removed due to increased infection risk at site.
[2019-12-19 17:05] LABS: Albumin 1.9 g/dL (3.4-5.0); Calcium 7.9 mg/dL (8.5-10.1); Magnesium 2.4 mg/dL (1.6-2.6)
[2019-12-19 17:08] LABS: BUN/Creatinine Ratio 20.6; Bilirubin, Total 0.4 mg/dL (0.2-1.0); Phosphorus 2.7 mg/dL (2.5-4.90); Total Protein 5.9 g/dL (6.4-8.2)
[2019-12-19] MEDS ORDERED: TPN PER PHARMACY IV NR ×10 (20:00)
[2019-12-19] MEDS: TEMAZEPAM 15 MG CAP PO PRN (21:39)
[2019-12-19] MEDS: INSULIN LANTUS (GLARGINE) 1 /0.01ml (100units/ml) SC SCH (23:21)
[2019-12-20] MEDS: ALBUTEROL SULF 2.5 MG/0.5ML(0.5%) NEB SOLN NEB SCH ×4 (00:04→18:47)
[2019-12-20] MEDS: IPRATROPIUM BROM 0.5 MG/2.5ML INH SOL NEB SCH ×4 (00:04→18:47)
[2019-12-20 05:00] VITALS: BP 134/78
[2019-12-20 05:29] LABS: Albumin 1.8 g/dL (3.4-5.0); Calcium 7.8 mg/dL (8.5-10.1); Magnesium 2.4 mg/dL (1.6-2.6); Potassium 3.9 mmol/L (3.5-5.1)
[2019-12-20 05:32] LABS: BUN/Creatinine Ratio 19.4; Bilirubin, Total 0.4 mg/dL (0.2-1.0); Phosphorus 2.8 mg/dL (2.5-4.90); Total Protein 5.8 g/dL (6.4-8.2)
[2019-12-20] MEDS: MEROPENEM 1GM IVPB 100 ML IV SCH ×3 (05:39→23:07)
[2019-12-20] MEDS: ACCU-CHEK COMFORT CURVE STRIP VI SCH ×4 (05:48→17:44)
[2019-12-20] MEDS: InsuLIN REG 1unit/0.01ml Soln (100units/ml) SC SCH ×4 (05:48→17:44)
--- NOTE | 2019-12-20 07:30 | NUR ---
Opening Shift Note Assumed care of patient, awake and alert. No S/S of distress/SOB. Pain management options discussed with patient. Instructed on POC and to call for assist PRN, will continue to monitor for changes Q1hr and PRN.
[2019-12-20 08:00] VITALS: BP 135/84
[2019-12-20] MEDS: PANTOPRAZOLE 40 MG/10 ML VIAL INJ IV SCH ×2 (09:40→23:07)
[2019-12-20] MEDS: FLUCONAZOLE 200MG/100ML 100 ML IV SCH (09:40)
[2019-12-20] MEDS: SODIUM CHLOR 0.9% PF (SALINE LOCK) 10ML VIAL/SYR IV SCH ×2 (09:40→23:08)
[2019-12-20] MEDS: traMADol HCL 50 MG TAB PO PRN ×2 (09:41→23:25)
[2019-12-20] MEDS ORDERED: DEXTROSE (50%) 50ML SYRG IV SCH (12:00)
[2019-12-20 13:00] VITALS: BP 130/80
[2019-12-20 17:00] VITALS: BP 128/59
--- NOTE | 2019-12-20 17:48 | NUR ---
PATIENT TRANSFERRED OUT OF BED TO THE CHAIR AT THE BEDSIDE INDEPENDENTLY.
--- NOTE | 2019-12-20 19:50 | NUR ---
Opening Shift Note Patient is AOx4, sitting up in bed supine, w/ HOB at 30 degrees. Patient has no S/S of distress or SOB. Discussed POC w/ patient, patient verbally agreed to understanding. Bed locked in lowest position w/ call light within reach. Will continue to monitor.
[2019-12-20] MEDS ORDERED: TPN PER PHARMACY IV NR ×11 (20:00)
[2019-12-20 20:10] VITALS: BP 128/59
[2019-12-20 22:00] VITALS: BP 155/79
[2019-12-20] MEDS: INSULIN LANTUS (GLARGINE) 1 /0.01ml (100units/ml) SC SCH (23:12)
[2019-12-20] MEDS: TEMAZEPAM 15 MG CAP PO PRN (23:24)
--- NOTE | 2019-12-20 23:30 | NUR ---
Patient Complains of Pain Patient requested a stronger medication. Hospitalist paged and received an order for high level of pain. Patient then requested mild non-narcotic pain medication. Medication given as prescribed. Patient aware he has an option for higher pain level if needed. Will continue to monitor.
[2019-12-21] MEDS: ALBUTEROL SULF 2.5 MG/0.5ML(0.5%) NEB SOLN NEB SCH ×4 (00:08→18:19)
[2019-12-21] MEDS: IPRATROPIUM BROM 0.5 MG/2.5ML INH SOL NEB SCH ×4 (00:08→18:19)
[2019-12-21] MEDS: InsuLIN REG 1unit/0.01ml Soln (100units/ml) SC SCH ×4 (01:01→17:53)
[2019-12-21] MEDS: ACCU-CHEK COMFORT CURVE STRIP VI SCH ×4 (01:02→17:53)
[2019-12-21] MEDS ORDERED: HYDROmorphone HCL 2 MG/ML VL IV PRN (03:00)
[2019-12-21 04:52] LABS: Basophils # (auto) 0 10 ^3/uL (0-0.2); Basophils % (auto) 0.3 % (0.0-2.0); Eosinophils # (auto) 0.1 10 ^3/uL (0-0.8); Eosinophils % (auto) 0.5 % (0.0-7.0); Hemoglobin 9.5 g/dL (13.5-17.5); Lymphocytes # (auto) 1.5 10 ^3/uL (0.4-5.4); Lymphocytes % (auto) 13.3 % (10.0-50.0); Mean Corpuscular Hemoglobin 31.7 pg (28.0-32.0); Mean Corpuscular Hgb Conc. 31.5 g/dL (32.0-36.0); Mean Corpuscular Volume 100.6 fL (80.0-100.0); Monocytes # (auto) 0.7 10 ^3/uL (0-1.3); Neutrophils # (auto) 8.8 10 ^3/uL (1.6-8.6); Neutrophils % (auto) 79.9 % (37.0-80.0); Platelet Count (auto) 366 10^3/uL (140-450); Red Blood Cells 2.98 10^6/uL (4.5-5.90); Red Cell Distribution Width 17.7 % (11.8-14.3); White Blood Cell 11.1 10^3/uL (4.4-10.8)
--- NOTE | 2019-12-21 05:00 | NUR ---
Call from Wes at [facility] about Transfer Wes stated they are still waiting for an opening for transfer.
[2019-12-21] MEDS: MEROPENEM 1GM IVPB 100 ML IV SCH ×2 (06:37→14:22)
[2019-12-21 08:00] VITALS: BP 126/76
[2019-12-21] MEDS ORDERED: SODIUM CHLORIDE 0.9% 1,000 ML IV SCH (08:00)
[2019-12-21] MEDS ORDERED: HYDROcodone-ACET 5/325MG TAB PO PRN (08:00)
[2019-12-21 09:00] VITALS: BP 126/76
[2019-12-21] MEDS: PANTOPRAZOLE 40 MG/10 ML VIAL INJ IV SCH (10:12)
[2019-12-21] MEDS: FLUCONAZOLE 200MG/100ML 100 ML IV SCH (10:12)
[2019-12-21] MEDS: SODIUM CHLOR 0.9% PF (SALINE LOCK) 10ML VIAL/SYR IV SCH (10:12)
[2019-12-21 11:16] LABS: Calcium 8.1 mg/dL (8.5-10.1); Magnesium 2.2 mg/dL (1.6-2.6)
[2019-12-21 11:19] LABS: BUN/Creatinine Ratio 24.3; Bilirubin, Total 0.5 mg/dL (0.2-1.0); Phosphorus 3.7 mg/dL (2.5-4.90); Total Protein 6.3 g/dL (6.4-8.2)
[2019-12-21] MEDS: traMADol HCL 50 MG TAB PO PRN ×2 (11:38→22:29)
[2019-12-21 13:00] VITALS: BP 112/70
--- NOTE | 2019-12-21 13:05 | NUR ---
TRANSFERRED PATIENT BACK TO BED FROM THE CHAIR AT BEDSIDE.
--- NOTE | 2019-12-21 14:04 | NUR ---
SUGAR CANE GROWER Received a page from from FRITZ Chau at 13:50 regarding transfer to [facility] stating Dr. Shaun Cano spoke to accepting provider from [facility] and contact , Dr. Ledbetter regarding patient. Informed FRITZ Chau I will contact [facility]. Received a page from Asha with [facility] at 13:51 regarding patien. Per Asha with [facility] transfer center a return agreement form has to be completed by the doctor before providing a room number. Informed Asha she can fax documentation to the nurses station on [address] and I will inform FRITZ Chau to have doctor sign. . Per Asha she will follow up as well to confirm form was received. Placed a call to [facility] regarding patient and confirm patient is still ON WILL CALL.
--- NOTE | 2019-12-21 16:24 | NUR ---
requested paperwork faxed back to Asha at [facility] [place]. Awaiting to get call back with the patient's room information.
--- NOTE | 2019-12-21 18:15 | NUR ---
follow up with Asha at [facility] transfer center to see if they received the fax. the fax was received and the bed request was submitted. now awaiting a call back from the transfer center when a bed has been selected for the patient.
--- NOTE | 2019-12-21 19:00 | NUR ---
Followed up padmini Healy from transfer dept. at [facility] Patient has a bed waiting for him in tower 4 bed 2 per Monet at [facility]. Addendum: 12/21/19 at 2062 by KADI DC RN RN CORRECTION: Call was made at 1999 not 1900.
--- NOTE | 2019-12-21 19:04 | NUR ---
endorsed transfer to [facility] RN Contact information for Asha at Transfer center is [phone]. Fax number is [phone].
--- NOTE | 2019-12-21 19:30 | NUR ---
Opening Shift Note Report received from [facility] Day shift. Patient is currently sitting up in bed supine w/ no s/s of distress or SOB. Bed locked in lowest position w/ call light within reach. Patient awaiting to be transferred to [facility] at this time.
[2019-12-21 20:00] VITALS: BP 133/88
[2019-12-21] MEDS ORDERED: TPN PER PHARMACY IV NR ×10 (20:00)
--- NOTE | 2019-12-21 21:00 | NUR ---
CALL TO [facility]; PER [facility] ETA IS 60 MINUTES. [facility] IS TRANSF[facility] PATIENT TO [facility] 4 BED 2.
[2019-12-21 21:33] VITALS: BP 133/88
--- NOTE | 2019-12-21 22:30 | NUR ---
[facility] GIVEN REPORT/ PATIENT TRANSFERRED OUT OF UNIT UPON TRANSFER, PATIENT IS AOX4, WITH ALL BELONGINGS WITH PATIENT, TELE MONITOR OFF. VITALS ARE STABLE.
[2019-12-21 23:24] VITALS: BP 133/88
== END 2019-12-21 22:45 | disposition short-term general hospital (02) | DRG 871 ==
LOC: TELE-CENTR 23:05 → MERGE 23:05 → EEVIPCON 23:05
PROVIDERS: ADMIT Internal Medicine; ATTEND Internal Medicine
PROC: 02H633Z Insertion of Infusion Device into Right Atrium, Percutaneous Approach (ICD-10-PCS; principal; 2019-12-16)
DX: A41.9 Sepsis, unspecified organism (principal); K66.1 Hemoperitoneum; K85.90 Acute pancreatitis without necrosis or infection, unspecified; S52.572A Other intraarticular fracture of lower end of left radius, initial encounter for closed fracture; E44.0 Moderate protein-calorie malnutrition; E87.1 Hypo-osmolality and hyponatremia; S36.299A Other injury of unspecified part of pancreas, initial encounter; S36.039A Unspecified laceration of spleen, initial encounter; E87.0 Hyperosmolality and hypernatremia; I69.351 Hemiplegia and hemiparesis following cerebral infarction affecting right dominant side; D64.9 Anemia, unspecified; E11.9 Type 2 diabetes mellitus without complications; J47.9 Bronchiectasis, uncomplicated; S42.002A Fracture of unspecified part of left clavicle, initial encounter for closed fracture; S62.102A Fracture of unspecified carpal bone, left wrist, initial encounter for closed fracture; I10 Essential (primary) hypertension; E78.5 Hyperlipidemia, unspecified; Z68.24 Body mass index [BMI] 24.0-24.9, adult; Z79.899 Other long term (current) drug therapy; Z79.82 Long term (current) use of aspirin; Z03.818 Encounter for observation for suspected exposure to other biological agents ruled out; Z90.49 Acquired absence of other specified parts of digestive tract; Y93.89 Activity, other specified; Y92.89 Other specified places as the place of occurrence of the external cause; Y99.8 Other external cause status; Z88.0 Allergy status to penicillin; Z91.81 History of falling; W18.30XA Fall on same level, unspecified, initial encounter
CPT/HCPCS: 36415; 36569; 70551; 71045; 71260; 73110; 74177; 80053; 81001; 82040; 82150; 82962; 83036; 83690; 83735; 84100; 84478; 85025; 85610; 85730; 87040; 87070; 87081; 87205; 92610; 94640; 96379; 97110; 97116; 97530; C9113; G0378; J1450; J1815; J1956; J2185; J3480; J7131

== ENCOUNTER 2019-12-25 20:31 | Inpatient (IN) | payer BC ==
[~2019-12-25] VITALS: Ht 0.1 cm; Wt 57.0 kg
--- NOTE | 2019-12-25 19:55 | NUR ---
Direct Admit Note JOHANNY READ GUTIERREZ admitted to Telemetry/MS unit as a direct admit arriving from transport. Patient oriented to Meg Plaza RN primary RN, unit, room, bed, and unit policies regarding patient care and visiting hours. Patient weighed by bedscale and encouraged to call if they need something. All questions and concerns addressed, patient verbalized understanding. Hospitalist paged at this time to notify of patients arrival. Waiting for call back for orders.
--- NOTE | 2019-12-25 20:30 | NUR ---
Hospitalist notified of direct admit: Hospitalist Jesus notified of direct admits arrival and given patients chart. Waiting for new orders to be placed after reviewing patients chart.
--- NOTE | 2019-12-25 20:45 | NUR ---
DR GUTIERREZ AT THE BEDSIDE.
[2019-12-25 22:00] VITALS: BP 144/83
[2019-12-25] MEDS ORDERED: MORPHINE SULF INJ 2 MG/ML SYRINGE 1ML IV PRN (22:15)
[2019-12-25] MEDS ORDERED: SODIUM CHLORIDE 0.9% 1,000 ML IV SCH (22:15)
[2019-12-25] MEDS ORDERED: DEXTROSE (50%) 50ML SYRG IV PRN (22:15)
[2019-12-25] MEDS: TEMAZEPAM 15 MG CAP PO PRN (22:16)
[2019-12-25 22:58] LABS: Basophils # (auto) 0 10 ^3/uL (0-0.2); Basophils % (auto) 0.3 % (0.0-2.0); Eosinophils # (auto) 0.1 10 ^3/uL (0-0.8); Eosinophils % (auto) 0.6 % (0.0-7.0); Hematocrit 27.5 % (41.0-53.0); Lymphocytes # (auto) 1.8 10 ^3/uL (0.4-5.4); Lymphocytes % (auto) 17.9 % (10.0-50.0); Mean Corpuscular Hemoglobin 29.2 pg (28.0-32.0); Mean Corpuscular Hgb Conc. 32.8 g/dL (32.0-36.0); Monocytes # (auto) 0.7 10 ^3/uL (0-1.3); Monocytes % (auto) 7.1 % (0.0-12.0); Neutrophils # (auto) 7.6 10 ^3/uL (1.6-8.6); Neutrophils % (auto) 74.1 % (37.0-80.0); Platelet Count (auto) 488 10^3/uL (140-450); Red Blood Cells 3.09 10^6/uL (4.5-5.90); Red Cell Distribution Width 15.4 % (11.8-14.3); White Blood Cell 10.3 10^3/uL (4.4-10.8)
[2019-12-25 23:13] LABS: INR 1.13 (0.9-1.15); Partial Thromboplastin Time 30.5 sec (23.64-32.05)
[2019-12-25 23:17] LABS: Albumin 2.1 g/dL (3.4-5.0); Potassium 3.6 mmol/L (3.5-5.1)
[2019-12-25 23:20] LABS: Bilirubin, Total 0.5 mg/dL (0.2-1.0); Total Protein 6.1 g/dL (6.4-8.2)
[2019-12-26 02:18] LABS: Urine Bacteria NONE SEEN /hpf (None Seen); Urine Blood Negative /uL (Negative); Urine Specific Gravity 1.004 (1.001-1.035); Urine WBC <1 /hpf (0 - 3)
--- NOTE | 2019-12-26 02:55 | NUR ---
Patients temperature rechecked as 99.4 Resting in bed with breaths even and unlabored.
[2019-12-26 05:00] VITALS: BP 148/80
--- NOTE | 2019-12-26 05:21 | NUR ---
Temperature, Hospitalist paged: Patients temperature was 99.7, removed blanket and provided only a sheet, cooled down temperature in the room. Paged hospitalist regarding low grade fever temperature. Waiting for call back.
--- NOTE | 2019-12-26 06:02 | NUR ---
Spoke with Hospitalist: Spoke with Hospitalist Jesus regarding temperature of 99.7. Stated that he will review chart and place orders for Tylenol for temperature. Also ordered for baseline EKG.
[2019-12-26] MEDS: ACCU-CHEK COMFORT CURVE STRIP VI SCH ×4 (06:40→22:10)
[2019-12-26] MEDS: InsuLIN REG 1unit/0.01ml Soln (100units/ml) SC SCH ×4 (06:40→22:14)
--- NOTE | 2019-12-26 07:15 | NUR ---
OPENING SHIFT NOTE Assumed care of patient from shift supervisor rn RN. Patient is alert and oriented x4, no signs of distress noted, patient denies pain. He was updated on the plan of care and verbalized understanding. Bed is locked, in the lowest position, side rails up x2 and call light is in reach. He was encouraged to call for assistance as needed.
[2019-12-26 09:00] VITALS: BP 145/88
[2019-12-26] MEDS ORDERED: LACTULOSE 20Gm/30ML SOLN PO PRN ×2 (09:30→12:30)
--- NOTE | 2019-12-26 09:30 | NUR ---
BRENDA AT BEDSIDE updated on patient status, plan of care discussed with the patient. New orders to DC iv fluids, start consistent carb diet, and start lactulose 30ml PO Q6hPRN for constipation. Orders read back and verified.
[2019-12-26] MEDS: RAMIPRIL 10 MG CAP PO SCH ×2 (09:42→09:52)
--- NOTE | 2019-12-26 10:16 | NUR ---
PATIENT TAKEN FOR CT accompanied by tech, no signs of distress noted on departure.
[2019-12-26] MEDS ORDERED: POLYETHYLENE GLYCOL 17 GM PWDR PO ONE (10:30)
--- NOTE | 2019-12-26 10:40 | NUR ---
PATIENT BACK FROM CT patient sitting in chair at bedside. no signs of distress noted.
--- NOTE | 2019-12-26 12:23 | NUR ---
APRIL AT BEDSIDE updated on patient status, plan of care discussed with the patient, no new orders received.
[2019-12-26 13:00] VITALS: BP 144/67
--- NOTE | 2019-12-26 14:30 | NUR ---
PT AT BEDSIDE
[2019-12-26 17:00] VITALS: BP 144/88
--- NOTE | 2019-12-26 19:20 | NUR ---
Opening Shift Note Received report from [facility]. Assumed care of patient, awake and alert. No S/S of distress/SOB or pain. Instructed on POC and to call for assist PRN. Fall precaution measures in place, will continue to monitor for changes Q1hr and PRN.
[2019-12-26] MEDS: POLYETHYLENE GLYCOL 17 GM PWDR PO PRN (20:31)
[2019-12-26 22:00] VITALS: BP 144/81
[2019-12-26] MEDS: TEMAZEPAM 15 MG CAP PO PRN (22:10)
[2019-12-27 05:00] VITALS: BP 140/86
[2019-12-27] MEDS: ACCU-CHEK COMFORT CURVE STRIP VI SCH ×4 (06:31→21:46)
[2019-12-27] MEDS: InsuLIN REG 1unit/0.01ml Soln (100units/ml) SC SCH ×4 (06:32→21:46)
--- NOTE | 2019-12-27 07:30 | NUR ---
Opening Shift Note Assumed care of patient, awake and alert. No S/S of distress/SOB or pain. Instructed on POC and to call for assist PRN, will continue to monitor for changes Q1hr and PRN. Fall precautions in place per safety protocol.
[2019-12-27 09:00] VITALS: BP 137/84
[2019-12-27] MEDS: RAMIPRIL 10 MG CAP PO SCH (10:11)
[2019-12-27] MEDS: PANTOPRAZOLE 40 MG TAB PO SCH (10:12)
[2019-12-27 12:22] LABS: Basophils # (auto) 0.1 10 ^3/uL (0-0.2); Basophils % (auto) 0.7 % (0.0-2.0); Hemoglobin 9.5 g/dL (13.5-17.5); Lymphocytes # (auto) 1.7 10 ^3/uL (0.4-5.4); Lymphocytes % (auto) 18.9 % (10.0-50.0); Mean Corpuscular Volume 89.7 fL (80.0-100.0); Monocytes # (auto) 0.6 10 ^3/uL (0-1.3); Neutrophils # (auto) 6.6 10 ^3/uL (1.6-8.6)
[2019-12-27 12:24] LABS: Eosinophils # (auto) 0 10 ^3/uL (0-0.8); Eosinophils % (auto) 0.3 % (0.0-7.0); Hematocrit 29.5 % (41.0-53.0); Mean Corpuscular Hemoglobin 28.9 pg (28.0-32.0); Mean Corpuscular Hgb Conc. 32.2 g/dL (32.0-36.0); Monocytes % (auto) 6.2 % (0.0-12.0); Neutrophils % (auto) 73.9 % (37.0-80.0); Platelet Count (auto) 484 10^3/uL (140-450); Red Blood Cells 3.29 10^6/uL (4.5-5.90); Red Cell Distribution Width 15.2 % (11.8-14.3); White Blood Cell 8.9 10^3/uL (4.4-10.8)
[2019-12-27 12:37] LABS: Albumin 2.3 g/dL (3.4-5.0); Calcium 8.5 mg/dL (8.5-10.1); Potassium 3.9 mmol/L (3.5-5.1)
[2019-12-27 12:40] LABS: Bilirubin, Total 0.6 mg/dL (0.2-1.0); Total Protein 6.7 g/dL (6.4-8.2)
[2019-12-27 13:00] VITALS: BP 133/77
[2019-12-27 16:54] VITALS: BP_SYST 134; BP_SYST 150; BP_DIAS 88; BP_DIAS 90
[2019-12-27] MEDS: TEMAZEPAM 15 MG CAP PO PRN (21:35)
[2019-12-27 22:00] VITALS: BP 123/73
[2019-12-28 05:00] VITALS: BP 136/71
[2019-12-28] MEDS: InsuLIN REG 1unit/0.01ml Soln (100units/ml) SC SCH ×4 (06:26→21:46)
[2019-12-28] MEDS: ACCU-CHEK COMFORT CURVE STRIP VI SCH ×4 (06:28→21:38)
--- NOTE | 2019-12-28 08:00 | NUR ---
Hospitalist MD Ledbetter at bedside, aware of patient status. Per MD Ledbetter, patient had loose stool therefore, hold lactulose. Will cont to monitor patient.
--- NOTE | 2019-12-28 08:31 | NUR ---
Ortho MD Kapadia at bedside. MD Kapadia placed waterproof cast to the left extremity. Per MD Kapadia, patient is encouraged to move arm at the elbow and exercise fingers by making a fist throughout the day. Patient instructed on care for cast. Patient verbalized understanding. Will cont to monitor patient.
[2019-12-28 08:53] VITALS: BP 142/76
[2019-12-28] MEDS: RAMIPRIL 10 MG CAP PO SCH (09:42)
[2019-12-28] MEDS: PANTOPRAZOLE 40 MG TAB PO SCH (09:42)
[2019-12-28] MEDS: Glucerna Carbsteady SHAKE Vanilla 8oz PO SCH ×2 (12:00→18:09)
[2019-12-28 13:00] VITALS: BP_SYST 116; BP_SYST 130; BP_DIAS 77; BP_DIAS 84
[2019-12-28 16:29] VITALS: BP 136/65
[2019-12-28] MEDS: TEMAZEPAM 15 MG CAP PO PRN (21:19)
[2019-12-28] MEDS: POLYETHYLENE GLYCOL 17 GM PWDR PO PRN (21:20)
[2019-12-28 22:00] VITALS: BP 117/76
[2019-12-29 05:00] VITALS: BP 132/75
[2019-12-29 06:17] LABS: Basophils # (auto) 0.1 10 ^3/uL (0-0.2); Basophils % (auto) 0.9 % (0.0-2.0); Eosinophils # (auto) 0.1 10 ^3/uL (0-0.8); Eosinophils % (auto) 1.7 % (0.0-7.0); Hematocrit 29.4 % (41.0-53.0); Hemoglobin 9.5 g/dL (13.5-17.5); Lymphocytes # (auto) 2.1 10 ^3/uL (0.4-5.4); Lymphocytes % (auto) 32.2 % (10.0-50.0); Mean Corpuscular Hemoglobin 28.4 pg (28.0-32.0); Mean Corpuscular Hgb Conc. 32.2 g/dL (32.0-36.0); Mean Corpuscular Volume 88.2 fL (80.0-100.0); Monocytes # (auto) 0.5 10 ^3/uL (0-1.3); Monocytes % (auto) 7.1 % (0.0-12.0); Neutrophils # (auto) 3.9 10 ^3/uL (1.6-8.6); Neutrophils % (auto) 58.1 % (37.0-80.0); Platelet Count (auto) 422 10^3/uL (140-450); Red Blood Cells 3.33 10^6/uL (4.5-5.90); Red Cell Distribution Width 15.1 % (11.8-14.3); White Blood Cell 6.6 10^3/uL (4.4-10.8)
[2019-12-29 06:44] LABS: Albumin 2.3 g/dL (3.4-5.0); Calcium 8.5 mg/dL (8.5-10.1); Potassium 3.9 mmol/L (3.5-5.1)
[2019-12-29] MEDS: ACCU-CHEK COMFORT CURVE STRIP VI SCH ×2 (06:47→11:46)
[2019-12-29 06:49] LABS: BUN/Creatinine Ratio 14.8; Bilirubin, Total 0.5 mg/dL (0.2-1.0); Total Protein 6.6 g/dL (6.4-8.2)
[2019-12-29] MEDS: InsuLIN REG 1unit/0.01ml Soln (100units/ml) SC SCH ×2 (06:51→11:46)
--- NOTE | 2019-12-29 08:00 | NUR ---
OPENING SHIFT NOTE ASSUMED CARE OF PATIENT AWAKE AND ALERT. NO S/S OF DISTRESS NOTED OR COMPLAINTS OF PAIN. PATIENT UPDATED ON POC FOR THE DAY AND ALL QUESTIONS ANSWERED. BED IS IN LOWEST, LOCKED POSITION WITH SIDE RAILS UP X2 AND CALL LIGHT WITHIN REACH. WILL CONTINUE TO MONITOR Q1H AND PRN.
[2019-12-29 08:54] VITALS: BP 129/74
[2019-12-29] MEDS: Glucerna Carbsteady SHAKE Vanilla 8oz PO SCH ×2 (09:06→11:46)
[2019-12-29] MEDS ORDERED: DOCUSATE SOD 100 MG CAP PO SCH (10:00)
[2019-12-29] MEDS: RAMIPRIL 10 MG CAP PO SCH (10:09)
[2019-12-29] MEDS: PANTOPRAZOLE 40 MG TAB PO SCH (10:10)
[2019-12-29 11:01] VITALS: BP 129/74
[2019-12-29 12:40] VITALS: BP 133/78
--- NOTE | 2019-12-29 14:12 | NUR ---
Discharge instructions given as ordered. Encourage to follow up with PMD as instructed. All questions and concerns addressed. Patient verbalized understanding. Medication reconciliation form completed and copy given to patient. PICC line removed with catheter intact, pressure dressing applied. Patient taken to vehicle via wheelchair with all personal belongings, accompanied by staff and family member. No distress noted at time of departure.
--- NOTE | 2019-12-29 17:55 | NUR ---
D/C Planning Regarding social service consult for home health physical therapy and walker. Faxed clinical information to [facility]. Per Dr. Dunn patient is clear to discharge home patient is walking 200 ft and no home health is needed at this time. Per Moira with [facility] [phone] they will deliver walker to patient home.
== END 2019-12-29 14:15 | disposition home or self-care (01) | DRG 563 ==
LOC: EEVIPCON 20:31 → MERGE 20:31 → CENTRAL 20:31
PROVIDERS: ADMIT Family Medicine; ATTEND Internal Medicine
DX: S52.572A Other intraarticular fracture of lower end of left radius, initial encounter for closed fracture (principal); S36.209A Unspecified injury of unspecified part of pancreas, initial encounter; S36.039A Unspecified laceration of spleen, initial encounter; E44.0 Moderate protein-calorie malnutrition; Z68.43 Body mass index [BMI] 50.0-59.9, adult; W18.39XA Other fall on same level, initial encounter; D64.9 Anemia, unspecified; E11.9 Type 2 diabetes mellitus without complications; E78.5 Hyperlipidemia, unspecified; I10 Essential (primary) hypertension; K59.00 Constipation, unspecified; Z79.899 Other long term (current) drug therapy; Y93.89 Activity, other specified; Y92.89 Other specified places as the place of occurrence of the external cause; Y99.8 Other external cause status; Z88.0 Allergy status to penicillin
CPT/HCPCS: 36415; 73110; 73200; 80053; 81001; 82962; 83690; 85025; 85610; 85730; 87081; 93005; 97110; 97530; G0378; J1815

== ENCOUNTER 2020-02-02 09:40 | Emergency (ER) | payer BC ==
[~2020-02-02] VITALS: Ht 165.1 cm; Wt 52.2 kg
[2020-02-02 10:25] VITALS: BP 109/79
== END 2020-02-02 11:27 | disposition home or self-care (01) ==
LOC: ER 09:40 → EEVIPCON 09:40 → ER 11:27
DX: Z20.828 Contact with and (suspected) exposure to other viral communicable diseases (principal)
CPT/HCPCS: 36415; 87426; 99283; U0003

== ENCOUNTER → 2020-02-02 | Outpatient (CLI) | payer BC ==
[2020-02-02 09:11] LABS: Urine Bacteria NONE SEEN /hpf (None Seen); Urine Blood Negative /uL (Negative); Urine Mucus FEW (None Seen); Urine Specific Gravity 1.021 (1.001-1.035); Urine WBC 1 /hpf (0 - 3)
[2020-02-02 09:29] LABS: Albumin 3.8 g/dL (3.4-5.0); Calcium 9.5 mg/dL (8.5-10.1); Potassium 4.5 mmol/L (3.5-5.1)
[2020-02-02 09:34] LABS: BUN/Creatinine Ratio 17.9; Bilirubin, Direct 0.2 mg/dL (0-0.2); Bilirubin, Total 0.4 mg/dL (0.2-1.0); Total Protein 7.7 g/dL (6.4-8.2)
== END | disposition home or self-care (01) ==
LOC: LAB 08:34
PROVIDERS: ATTEND Internal Medicine
DX: E11.9 Type 2 diabetes mellitus without complications (principal); K76.0 Fatty (change of) liver, not elsewhere classified; R80.9 Proteinuria, unspecified
CPT/HCPCS: 36415; 80053; 80076; 81001; 82150; 83036; 83690

== ENCOUNTER → 2020-06-17 | Outpatient (CLI) | payer BC | END | disposition home or self-care (01) | LOC: LAB 14:19 | PROVIDERS: ATTEND Nurse Practitioner Family | DX: Z20.828 Contact with and (suspected) exposure to other viral communicable diseases (principal) | CPT/HCPCS: 36415; 87426 ==

== ENCOUNTER → 2020-10-22 | Outpatient (CLI) | payer BC ==
[~2020-10-22] MED LIST changes: -PIOG30TA20 OR; +PIOG30TA28 OR
[2020-10-22 10:08] LABS: Cholesterol 123 mg/dL (< 200)
[2020-10-22 10:11] LABS: HDL Cholesterol 43 mg/dL (40-59); LDL Cholesterol 68 mg/dL (< 100); Triglycerides 91 mg/dL (< 150)
== END | disposition home or self-care (01) ==
LOC: LAB 09:28
PROVIDERS: ATTEND Internal Medicine
DX: E11.9 Type 2 diabetes mellitus without complications (principal); E78.5 Hyperlipidemia, unspecified; M79.671 Pain in right foot
CPT/HCPCS: 36415; 80061; 82043; 83036; 84153

== ENCOUNTER → 2021-04-06 | Outpatient (CLI) | payer BC | END | disposition home or self-care (01) | LOC: LAB 12:04 | PROVIDERS: ATTEND Nurse Practitioner Family | DX: Z20.822 Contact with and (suspected) exposure to COVID-19 (principal) | CPT/HCPCS: C9803; U0003 ==

== ENCOUNTER → 2021-05-13 | Outpatient (CLI) | payer BC | END | disposition home or self-care (01) | LOC: LAB 07:04 | PROVIDERS: ATTEND Internal Medicine | DX: Z20.822 Contact with and (suspected) exposure to COVID-19 (principal) | CPT/HCPCS: C9803; U0003 ==

== ENCOUNTER → 2021-09-22 | Outpatient (CLI) | payer BC ==
[2021-09-22 08:52] LABS: Basophils # (auto) 0 10 ^3/uL (0-0.2); Basophils % (auto) 0.5 % (0.0-2.0); Eosinophils # (auto) 0.1 10 ^3/uL (0-0.8); Eosinophils % (auto) 2.9 % (0.0-7.0); Hematocrit 39.4 % (41.0-53.0); Hemoglobin 13.2 g/dL (13.5-17.5); Lymphocytes # (auto) 2.5 10 ^3/uL (0.4-5.4); Lymphocytes % (auto) 47.7 % (10.0-50.0); Mean Corpuscular Hemoglobin 29.4 pg (28.0-32.0); Mean Corpuscular Hgb Conc. 33.6 g/dL (32.0-36.0); Mean Corpuscular Volume 87.5 fL (80.0-100.0); Monocytes # (auto) 0.4 10 ^3/uL (0-1.3); Monocytes % (auto) 7.5 % (0.0-12.0); Neutrophils # (auto) 2.2 10 ^3/uL (1.6-8.6); Neutrophils % (auto) 41.4 % (37.0-80.0); Nucleated Red Blood Cells % 0.1 %; Red Cell Distribution Width 13.5 % (11.8-14.3); White Blood Cell 5.2 10^3/uL (4.4-10.8)
[2021-09-22 08:56] LABS: Urine Bacteria NONE SEEN /hpf (None Seen); Urine Blood Negative /uL (Negative); Urine Mucus FEW (None Seen); Urine Specific Gravity 1.017 (1.001-1.035); Urine WBC <1 /hpf (0 - 3)
[2021-09-22 09:48] LABS: Albumin 3.8 g/dL (3.4-5.0); Potassium 4.4 mmol/L (3.5-5.1)
[2021-09-22 09:55] LABS: BUN/Creatinine Ratio 14.1; Bilirubin, Total 0.6 mg/dL (0.2-1.0); Calcium 8.9 mg/dL (8.5-10.1); Total Protein 7.2 g/dL (6.4-8.2)
[2021-09-22 15:59] LABS: Prostate Specific Antigen 0.24 ng/mL (0.0-4.0)
== END | disposition home or self-care (01) ==
LOC: LAB 07:37
PROVIDERS: ATTEND Internal Medicine
DX: Z12.5 Encounter for screening for malignant neoplasm of prostate (principal); E11.22 Type 2 diabetes mellitus with diabetic chronic kidney disease; N18.2 Chronic kidney disease, stage 2 (mild); K76.0 Fatty (change of) liver, not elsewhere classified; R80.9 Proteinuria, unspecified; E53.8 Deficiency of other specified B group vitamins; E78.2 Mixed hyperlipidemia; E55.9 Vitamin D deficiency, unspecified
CPT/HCPCS: 36415; 80053; 80061; 81001; 82043; 82306; 82607; 83036; 84153; 84443; 85025

== ENCOUNTER → 2022-04-13 | Outpatient (CLI) | payer BC | END | disposition home or self-care (01) | LOC: XYW 08:40 | PROVIDERS: ATTEND Internal Medicine | DX: R09.89 Other specified symptoms and signs involving the circulatory and respiratory systems (principal) | CPT/HCPCS: 93886 ==

== ENCOUNTER → 2022-04-24 | Outpatient (CLI) | payer BC | END | disposition home or self-care (01) | LOC: XYW 08:17 | PROVIDERS: ATTEND Internal Medicine | DX: I08.2 Rheumatic disorders of both aortic and tricuspid valves (principal); R06.02 Shortness of breath | CPT/HCPCS: 93306 ==

== ENCOUNTER 2022-05-04 20:34 | Inpatient (IN) | payer BC ==
[~2022-05-04] VITALS: Ht 162.6 cm; Wt 58.8 kg
[2022-05-04] MEDS ORDERED: ONDANSETRON HCL 4 MG/2 ML VIAL IV ONE (21:00)
[2022-05-04] MEDS ORDERED: HYDROmorphone HCL 2 MG/ML VL/or syr IV ONE ×2 (21:00→23:15)
[2022-05-04 21:51] LABS: Basophils # (auto) 0.1 10 ^3/uL (0-0.2); Basophils % (auto) 0.8 % (0.0-2.0); Eosinophils # (auto) 0.1 10 ^3/uL (0-0.8); Eosinophils % (auto) 1.2 % (0.0-7.0); Hematocrit 41.1 % (41.0-53.0); Hemoglobin 13.5 g/dL (13.5-17.5); Lymphocytes # (auto) 3.8 10 ^3/uL (0.4-5.4); Lymphocytes % (auto) 47.3 % (10.0-50.0); Mean Corpuscular Hemoglobin 28.7 pg (28.0-32.0); Mean Corpuscular Hgb Conc. 32.9 g/dL (32.0-36.0); Mean Corpuscular Volume 87.3 fL (80.0-100.0); Monocytes # (auto) 0.5 10 ^3/uL (0-1.3); Monocytes % (auto) 6.1 % (0.0-12.0); Neutrophils # (auto) 3.6 10 ^3/uL (1.6-8.6); Neutrophils % (auto) 44.6 % (37.0-80.0); Red Blood Cells 4.71 10^6/uL (4.5-5.90); Red Cell Distribution Width 13.2 % (11.8-14.3)
[2022-05-04] MEDS ORDERED: IOHEXOL 300 MG/ML 100ML BOTTLE IJ ONE (21:59)
[2022-05-04 22:08] LABS: Albumin 4.1 g/dL (3.4-5.0); Calcium 9.5 mg/dL (8.5-10.1)
[2022-05-04 22:12] LABS: BUN/Creatinine Ratio 18.2; Bilirubin, Total 0.5 mg/dL (0.2-1.0); Total Protein 7.6 g/dL (6.4-8.2)
[2022-05-04] MEDS ORDERED: DEXTROSE (50%) 50ML SYRG IV ONE (22:15)
[2022-05-04] MEDS ORDERED: HYDROmorphone HCL 2 MG/ML VL/or syr IV PRN (23:15)
[2022-05-04] MEDS ORDERED: NITROGLYCERIN 0.4 MG SL TAB SL PRN (23:15)
[2022-05-04] MEDS ORDERED: HYDROcodone-ACET 5/325MG TAB PO PRN (23:15)
[2022-05-04] MEDS ORDERED: LORazepam 0.5 MG TAB PO PRN (23:15)
[2022-05-04] MEDS ORDERED: METOCLOPRAMIDE HCL 5MG/ml INJ 2ml VIAL IV PRN (23:15)
[2022-05-04] MEDS ORDERED: MORPHINE SULFATE INJ 2 MG/ml SYRG IV PRN (23:15)
[2022-05-04] MEDS ORDERED: DEXTROSE (50%) 50ML SYRG IV PRN (23:30)
[2022-05-04] MEDS ORDERED: IPRATROPIUM BROM 0.5 MG/2.5ML INH SOL NEB PRN (23:30)
[2022-05-04] MEDS ORDERED: ALBUTEROL SULF 2.5 MG/0.5ML(0.5%) NEB SOLN NEB PRN (23:30)
[2022-05-04 23:43] LABS: INR 1.03 (0.9-1.15); Partial Thromboplastin Time 27.1 sec (24.6-33.4)
[2022-05-04] MEDS: D5W/SOD CHL 0.45% 1,000 ML IV SCH (23:48)
[2022-05-05] MEDS: ACCU-CHEK COMFORT CURVE STRIP VI SCH ×3 (00:15→11:45)
[2022-05-05 02:44] VITALS: BP 135/80
[2022-05-05 03:16] VITALS: BP 129/77
[2022-05-05 05:00] VITALS: BP 119/76
[2022-05-05] MEDS: InsuLIN REG 1unit/0.01ml Soln (100units/ml) SC SCH ×3 (06:00→11:45)
[2022-05-05 08:51] VITALS: BP 129/77
[2022-05-05] MEDS: D5W/SOD CHL 0.45% 1,000 ML IV SCH (11:12)
[2022-05-05] MEDS ORDERED: GASTROGRAFIN 120 ML SOL ONE (11:12)
[2022-05-05 12:33] VITALS: BP 113/69
[2022-05-05 16:35] VITALS: BP 125/74
== END 2022-05-05 18:28 | disposition home or self-care (01) | DRG 389 ==
LOC: EEVIPCON 20:34 → ER 20:34 → OVERFLOW 23:16 → WEST WING 23:55
PROVIDERS: ADMIT Internal Medicine; ATTEND Internal Medicine
DX: K56.609 Unspecified intestinal obstruction, unspecified as to partial versus complete obstruction (principal); K86.2 Cyst of pancreas; E11.22 Type 2 diabetes mellitus with diabetic chronic kidney disease; I10 Essential (primary) hypertension; Z20.822 Contact with and (suspected) exposure to COVID-19; E11.9 Type 2 diabetes mellitus without complications; E78.5 Hyperlipidemia, unspecified; Z83.3 Family history of diabetes mellitus; Z88.0 Allergy status to penicillin
CPT/HCPCS: 36415; 71045; 74177; 74250; 80053; 82962; 83036; 83690; 83735; 84443; 85025; 85610; 85730; 87426; 93005; G0378; J2405

== ENCOUNTER → 2022-06-14 | Outpatient (CLI) | payer BC ==
[2022-06-14 08:50] VITALS: BP 123/80
== END | disposition home or self-care (01) ==
LOC: XYW 07:44
PROVIDERS: ATTEND Internal Medicine
DX: R06.02 Shortness of breath (principal); R09.89 Other specified symptoms and signs involving the circulatory and respiratory systems; I10 Essential (primary) hypertension; E11.9 Type 2 diabetes mellitus without complications; E78.5 Hyperlipidemia, unspecified; Z79.4 Long term (current) use of insulin
CPT/HCPCS: 78452; 93017; A9500

== ENCOUNTER → 2022-12-13 | Outpatient (CLI) | payer BC ==
[2022-12-13 09:58] LABS: Albumin 3.8 g/dL (3.4-5.0); Calcium 8.5 mg/dL (8.5-10.1); Potassium 4.3 mmol/L (3.5-5.1)
[2022-12-13 10:07] LABS: Bilirubin, Total 0.4 mg/dL (0.2-1.0)
== END | disposition home or self-care (01) ==
LOC: LAB 08:57
PROVIDERS: ATTEND Internal Medicine
DX: Z12.11 Encounter for screening for malignant neoplasm of colon (principal); E11.9 Type 2 diabetes mellitus without complications; K76.0 Fatty (change of) liver, not elsewhere classified; E78.5 Hyperlipidemia, unspecified
CPT/HCPCS: 36415; 80053; 80061; 82043; 83036; 84153

== ENCOUNTER 2023-08-13 08:47 | Inpatient (IN) | payer BC ==
[~2023-08-13] VITALS: Ht 162.6 cm; Wt 63.9 kg
[2023-08-13] VITALS (10 sets, daily range): BP systolic 114–144; BP diastolic 62–79; PULSE 80–91; RESP 17–20; TEMP 98.7–100.3; O2SAT 94–100
[2023-08-13] MEDS ORDERED: MAALOX PLUS or MAALOX 30 ML PO PRN (10:00)
[2023-08-13] MEDS ORDERED: DOCUSATE SOD 100 MG CAP PO PRN (10:00)
[2023-08-13] MEDS ORDERED: ONDANSETRON HCL 4 MG/2 ML VIAL IV PRN (10:00)
[2023-08-13] MEDS ORDERED: HYDROcodone-ACET 5/325MG TAB PO PRN (10:00)
[2023-08-13] MEDS ORDERED: LORazepam 0.5 MG TAB PO PRN (10:00)
[2023-08-13 11:22] LABS: Basophils # (auto) 0 10 ^3/uL (0-0.2); Basophils % (auto) 0.2 % (0.0-2.0); Eosinophils # (auto) 0 10 ^3/uL (0-0.8); Eosinophils % (auto) 0.1 % (0.0-7.0); Hematocrit 38.3 % (41.0-53.0); Hemoglobin 12.8 g/dL (13.5-17.5); Lymphocytes # (auto) 1.7 10 ^3/uL (0.4-5.4); Lymphocytes % (auto) 20.8 % (10.0-50.0); Mean Corpuscular Hemoglobin 29.3 pg (28.0-32.0); Mean Corpuscular Hgb Conc. 33.4 g/dL (32.0-36.0); Mean Corpuscular Volume 87.8 fL (80.0-100.0); Neutrophils # (auto) 5.6 10 ^3/uL (1.6-8.6); Neutrophils % (auto) 66.9 % (37.0-80.0); Red Blood Cells 4.36 10^6/uL (4.5-5.90); Red Cell Distribution Width 13.5 % (11.8-14.3); White Blood Cell 8.4 10^3/uL (4.4-10.8)
[2023-08-13 11:48] LABS: Alanine Aminotransferase 19 U/L (7-40); Albumin 4.5 g/dL (3.2-4.8); Alkaline Phosphatase 73 U/L (46-116); Anion Gap 7 (5-15); Aspartate Aminotransferase 20 U/L (13-40); BUN/Creatinine Ratio 9.6 (10.0-20.0); Blood Urea Nitrogen 9 mg/dL (9-23); Calcium 9.5 mg/dL (8.5-10.1); Carbon Dioxide 28 mmol/L (20-30); Chloride 98 mmol/L (98-107); Glucose 374 mg/dL (74-106); Potassium 4.5 mmol/L (3.5-5.1); Sodium 133 mmol/L (136-145)
[2023-08-13 11:49] LABS: Bilirubin, Total 0.5 mg/dL (0.2-1.0); Total Protein 7.6 g/dL (5.7-8.2)
[2023-08-13] MEDS ORDERED: ROSU10TA64 PO (12:30)
[2023-08-13] MEDS ORDERED: INSU0.2I SC (12:30)
[2023-08-13] MEDS ORDERED: DEXTROSE (50%) 50ML SYRG IV PRN (12:45)
[2023-08-13] MEDS: SODIUM CHLOR 0.9% PF (SALINE LOCK) 10ML VIAL/SYR IV SCH (13:58)
[2023-08-13] MEDS: DOXYCYCLINE 100 MG TAB/CAP PO SCH (13:58)
[2023-08-13] MEDS: PANTOPRAZOLE 40 MG TAB PO ONE (13:58)
[2023-08-13] MEDS: INSULIN LANTUS (GLARGINE) 1 /0.01ml (100units/ml) SC ONE (14:07)
[2023-08-13] MEDS: ACETYLCYSTEINE 10 %(100MG/ML) SOL 4ML NEB SCH (14:07)
[2023-08-13] MEDS: ALBUTEROL SULF 2.5 MG/0.5ML(0.5%) NEB SOLN NEB SCH (14:07)
[2023-08-13] MEDS: IPRATROPIUM BROM 0.5 MG/2.5ML INH SOL NEB SCH (14:07)
[2023-08-13] MEDS: IPRATROPIUM BROM 0.5 MG/2.5ML INH SOL ONE (14:25)
[2023-08-13] MEDS: ALBUTEROL SULF 2.5 MG/0.5ML(0.5%) NEB SOLN ONE (14:26)
[2023-08-13] MEDS: ACETYLCYSTEINE 10 %(100MG/ML) SOL 4ML ONE (14:26)
[2023-08-13 14:53] LABS: Urine Bacteria NONE SEEN /hpf (None Seen); Urine Blood Negative /uL (Negative); Urine Clarity Clear (Clear); Urine Color Yellow (Yellow); Urine Protein, UAD 1+ (Negative); Urine Specific Gravity 1.025 (1.001-1.035); Urine Urobilinogen Normal (Negative); Urine WBC <1 /hpf (0 - 3); Urine pH 5.5 (5.0-8.0)
[2023-08-13] MEDS: ACETAMINOPHEN 325 MG TAB PO PRN (17:18)
[2023-08-13] MEDS: ACCU-CHEK COMFORT CURVE STRIP VI SCH (17:57)
[2023-08-13] MEDS: cefTRIAXone 2GM/50ML D5W 50 ML IV ONE (17:57)
[2023-08-13] MEDS: methylPREDNISolone SOD SUCC 40 MG/ML VL IV SCH (17:57)
[2023-08-13] MEDS: InsuLIN REG 1unit/0.01ml Soln (100units/ml) SC SCH ×2 (19:11→21:52)
[2023-08-13 20:33] LABS: COVID19 ANTIGEN SOFIA FIA NEGATIVE (NEGATIVE); Rapid Influenza A Negative (Negative); Rapid Influenza B Negative (Negative)
[2023-08-13] MEDS: TEMAZEPAM 15 MG CAP PO ONE (21:42)
[2023-08-14] VITALS (14 sets, daily range): BP systolic 111–134; BP diastolic 64–71; PULSE 66–105; RESP 17–19; TEMP 98.3–98.6; O2SAT 95–100
[2023-08-14] MEDS: IPRATROPIUM BROM 0.5 MG/2.5ML INH SOL ONE (00:27)
[2023-08-14] MEDS: ALBUTEROL SULF 2.5 MG/0.5ML(0.5%) NEB SOLN ONE (00:27)
[2023-08-14] MEDS: methylPREDNISolone SOD SUCC 40 MG/ML VL IV SCH (03:00)
[2023-08-14] MEDS: INSULIN LANTUS (GLARGINE) 1 /0.01ml (100units/ml) SC SCH (06:43)
[2023-08-14] MEDS: cefTRIAXone 1GM/50ML D5W 50 ML IV SCH (08:54)
[2023-08-14] MEDS: PANTOPRAZOLE 40 MG TAB PO SCH (10:42)
[2023-08-14] MEDS ORDERED: DOXY100C4 PO (11:53)
[2023-08-14] MEDS ORDERED: PRED20TA2 PO (11:53)
[2023-08-14] MEDS ORDERED: FLUT250M2 INH (11:53)
[2023-08-14] MEDS ORDERED: ALBUAER3 IN (11:53)
== END 2023-08-14 14:55 | disposition home or self-care (01) | DRG 194 ==
LOC: EEVIPCON → UNDOADMIN 09:30 → CENTRAL 09:30
PROVIDERS: ADMIT Internal Medicine; ATTEND Internal Medicine
DX: J18.0 Bronchopneumonia, unspecified organism (principal); K86.2 Cyst of pancreas; J20.9 Acute bronchitis, unspecified; I10 Essential (primary) hypertension; Z20.822 Contact with and (suspected) exposure to COVID-19; E11.9 Type 2 diabetes mellitus without complications; Z88.0 Allergy status to penicillin
CPT/HCPCS: 36415; 71250; 80053; 81001; 82962; 83036; 84443; 85025; 86301; 87040; 87070; 87205; 87426; 87804; 93306; 94640; G0378; J1815

== ENCOUNTER → 2023-12-24 | Outpatient (CLI) | payer BC ==
[~2023-12-24] MED LIST changes: +ALBUAER3 IN; -ASPI-543 PO; +DOXY100C4 PO; +FLUT250M2 INH; -GLIP10TA9 PO; -GLYB2.5T71 OR; -GLYB2.5T8 OR; +INSU0.2I SC; -METF-370 OR; -PIOG30TA28 OR; +PRED20TA2 PO; -RAMI2.5T OR; -ROSU10TA16 OR; -ROSU10TA16 PO; +ROSU10TA64 PO; -SITA100T7 OR
[2023-12-24 07:13] LABS: Anion Gap 4 (5-15); Carbon Dioxide 29 mmol/L (20-30); Chloride 107 mmol/L (98-107); Potassium 4.1 mmol/L (3.5-5.1); Sodium 140 mmol/L (136-145)
[2023-12-24 07:14] LABS: Calcium 9.2 mg/dL (8.5-10.1)
[2023-12-24 07:19] LABS: BUN/Creatinine Ratio 16.9 (10.0-20.0); Blood Urea Nitrogen 13 mg/dL (9-23); Glucose 110 mg/dL (74-106); Triglycerides 66 mg/dL (< 150)
[2023-12-24 07:20] LABS: LDL Cholesterol 52 mg/dL (< 100)
[2023-12-24 07:21] LABS: Cholesterol 108 mg/dL (< 200); HDL Cholesterol 36 mg/dL (40-59)
[2023-12-24 07:39] LABS: Creatinine, Urine 74.2 mg/dL (30.0-125.0)
== END | disposition home or self-care (01) ==
LOC: LAB 06:38
PROVIDERS: ATTEND Internal Medicine
DX: E11.9 Type 2 diabetes mellitus without complications (principal)
CPT/HCPCS: 36415; 80048; 80061; 82043; 82570; 83036

== ENCOUNTER → 2024-04-04 | Outpatient (CLI) | payer BC ==
[2024-04-04 08:28] LABS: Hematocrit 42.2 % (41.0-53.0); Mean Corpuscular Hemoglobin 29.4 pg (28.0-32.0); Mean Corpuscular Hgb Conc. 33.3 g/dL (32.0-36.0); Mean Corpuscular Volume 88.3 fL (80.0-100.0); Platelet Count (auto) 224 10^3/uL (140-450); Red Blood Cells 4.77 10^6/uL (4.5-5.90); Red Cell Distribution Width 14.5 % (11.8-14.3); White Blood Cell 5.9 10^3/uL (4.4-10.8)
[2024-04-04 08:30] LABS: Creatinine, Urine 113.4 mg/dL (30.0-125.0)
[2024-04-04 08:32] LABS: Alanine Aminotransferase 26 U/L (7-40); Albumin 4.5 g/dL (3.2-4.8); Alkaline Phosphatase 60 U/L (46-116); Anion Gap 7 (5-15); Aspartate Aminotransferase 19 U/L (13-40); BUN/Creatinine Ratio 18.1 (10.0-20.0); Blood Urea Nitrogen 15 mg/dL (9-23); Calcium 9.5 mg/dL (8.7-10.4); Carbon Dioxide 28 mmol/L (20-31); Chloride 106 mmol/L (98-107); Cholesterol 112 mg/dL (< 200); Glucose 86 mg/dL (74-106); LDL Cholesterol 57 mg/dL (< 100); Potassium 3.9 mmol/L (3.5-5.1); Sodium 141 mmol/L (136-145); Triglycerides 82 mg/dL (< 150)
[2024-04-04 08:33] LABS: Bilirubin, Total 0.6 mg/dL (0.2-1.0); HDL Cholesterol 42 mg/dL (40-59); Total Protein 7.1 g/dL (5.7-8.2)
[2024-04-04 08:34] LABS: Band Neutrophils % (manual) 0; Basophils % (manual) 0 (0.0-2.0); Blast Cells 0; Metamyelocytes % 0; Myelocytes % 0; Promyelocytes % 0
[2024-04-04 09:23] LABS: Eosinophils % (manual) 3 (0-7); Lymphocytes % (manual) 57 (10.0-50.0); Monocytes % (manual) 7 (0-12); Platelet Estimate Adequate; RBC Morphology Normal; Reactive Lymphocytes 4
[2024-04-04 10:33] LABS: Free T3 2.88 pg/mL (2.3-4.2); Free T4 (Free Thyroxine) 1.1 ng/dL (0.89-1.76)
== END | disposition home or self-care (01) ==
LOC: LAB 07:52
PROVIDERS: ATTEND Internal Medicine
DX: E11.9 Type 2 diabetes mellitus without complications (principal); E78.5 Hyperlipidemia, unspecified; K86.3 Pseudocyst of pancreas; Z87.19 Personal history of other diseases of the digestive system
CPT/HCPCS: 36415; 80053; 80061; 82043; 82306; 82570; 82607; 83036; 84439; 84443; 84481; 85007; 85027; 86301

== ENCOUNTER → 2024-09-08 | Outpatient (CLI) | payer BC ==
[2024-09-08 08:43] LABS: Alanine Aminotransferase 30 U/L (7-40); Albumin 4.7 g/dL (3.2-4.8); Alkaline Phosphatase 62 U/L (46-116); Anion Gap 9 (5-15); Aspartate Aminotransferase 26 U/L (13-40); BUN/Creatinine Ratio 30.5 (10.0-20.0); Calcium 9.6 mg/dL (8.7-10.4); Carbon Dioxide 29 mmol/L (20-31); Chloride 105 mmol/L (98-107); LDL Cholesterol 56 mg/dL (< 100); Potassium 4.8 mmol/L (3.5-5.1); Sodium 143 mmol/L (136-145); Total Protein 6.9 g/dL (5.7-8.2); Triglycerides 71 mg/dL (< 150)
[2024-09-08 08:44] LABS: Bilirubin, Total 0.5 mg/dL (0.2-1.0); Cholesterol 114 mg/dL (< 200); HDL Cholesterol 40 mg/dL (40-59)
[2024-09-08 08:47] LABS: Blood Urea Nitrogen 25 mg/dL (9-23); Glucose 139 mg/dL (74-106)
[2024-09-08 09:14] LABS: Creatinine, Urine 100.76 mg/dL (30.0-125.0)
== END | disposition home or self-care (01) ==
LOC: LAB 07:56
PROVIDERS: ATTEND Internal Medicine
DX: I10 Essential (primary) hypertension (principal); E11.65 Type 2 diabetes mellitus with hyperglycemia; K86.3 Pseudocyst of pancreas; E78.5 Hyperlipidemia, unspecified; R07.9 Chest pain, unspecified; Z87.19 Personal history of other diseases of the digestive system
CPT/HCPCS: 36415; 80053; 80061; 82043; 82570; 83036; 85379

== ENCOUNTER → 2024-10-08 | Outpatient (CLI) | payer BC | END | disposition home or self-care (01) | LOC: LAB 11:20 | PROVIDERS: ATTEND Internal Medicine | DX: K86.2 Cyst of pancreas (principal) | CPT/HCPCS: 36415; 82565; 84520; 86301 ==

== ENCOUNTER 2024-12-05 06:12 | Outpatient (CLI) | payer BC ==
[2024-12-05 06:37] LABS: Basophils # (auto) 0 10 ^3/uL (0-0.2); Basophils % (auto) 0.7 % (0.0-2.0); Eosinophils # (auto) 0.2 10 ^3/uL (0-0.8); Eosinophils % (auto) 3.8 % (0.0-7.0); Hematocrit 41.2 % (41.0-53.0); Hemoglobin 13.8 g/dL (13.5-17.5); Lymphocytes # (auto) 2.9 10 ^3/uL (0.4-5.4); Lymphocytes % (auto) 46.5 % (10.0-50.0); Mean Corpuscular Hemoglobin 29.4 pg (28.0-32.0); Mean Corpuscular Hgb Conc. 33.5 g/dL (32.0-36.0); Mean Corpuscular Volume 87.8 fL (80.0-100.0); Monocytes # (auto) 0.4 10 ^3/uL (0-1.3); Monocytes % (auto) 6.8 % (0.0-12.0); Neutrophils # (auto) 2.6 10 ^3/uL (1.6-8.6); Neutrophils % (auto) 42.2 % (37.0-80.0); Platelet Count (auto) 230 10^3/uL (140-450); Red Blood Cells 4.69 10^6/uL (4.5-5.90); Red Cell Distribution Width 13.5 % (11.8-14.3); White Blood Cell 6.2 10^3/uL (4.4-10.8)
[2024-12-05 07:00] LABS: Alanine Aminotransferase 24 U/L (7-40); Albumin 4.4 g/dL (3.2-4.8); Alkaline Phosphatase 53 U/L (46-116); Anion Gap 11 (5-15); Aspartate Aminotransferase 22 U/L (<34); Blood Urea Nitrogen 21 mg/dL (9-23); Calcium 9.7 mg/dL (8.7-10.4); Carbon Dioxide 27 mmol/L (20-31); Chloride 105 mmol/L (98-107); Glucose 99 mg/dL (74-106); LDL Cholesterol 63 mg/dL (< 100); Sodium 143 mmol/L (136-145); Total Protein 6.8 g/dL (5.7-8.2); Triglycerides 68 mg/dL (< 150)
[2024-12-05 07:01] LABS: Bilirubin, Total 0.5 mg/dL (0.2-1.0); Cholesterol 114 mg/dL (< 200)
[2024-12-05 07:04] LABS: HDL Cholesterol 38 mg/dL (40-59)
[2024-12-05 07:22] LABS: Lipase 57 U/L (12-53)
== END 2024-12-05 17:00 | disposition home or self-care (01) ==
LOC: LAB 06:12
PROVIDERS: ATTEND Internal Medicine
DX: E11.65 Type 2 diabetes mellitus with hyperglycemia (principal)
CPT/HCPCS: 36415; 80053; 80061; 83036; 83690; 85025

== ENCOUNTER → 2024-12-17 | Outpatient (CLI) | payer BC ==
[2024-12-17 12:55] LABS: Prostate Specific Antigen 0.26 ng/mL (0.0-4.0)
== END | disposition home or self-care (01) ==
LOC: LAB 12:03
PROVIDERS: ATTEND Internal Medicine
DX: E11.9 Type 2 diabetes mellitus without complications (principal); Z12.5 Encounter for screening for malignant neoplasm of prostate; Z12.11 Encounter for screening for malignant neoplasm of colon
CPT/HCPCS: 36415; 82306; 82607; 84153; 84443

== ENCOUNTER 2024-12-22 12:32 | Outpatient (CLI) | payer BC | END 2024-12-22 17:00 | disposition home or self-care (01) | LOC: LAB 12:32 | PROVIDERS: ATTEND Internal Medicine | DX: E11.9 Type 2 diabetes mellitus without complications (principal); Z12.5 Encounter for screening for malignant neoplasm of prostate; Z12.11 Encounter for screening for malignant neoplasm of colon | CPT/HCPCS: 82270 ==

== ENCOUNTER 2025-01-20 08:13 | Outpatient (CLI) | payer BC ==
[2025-01-20 09:02] LABS: Alanine Aminotransferase 27 U/L (7-40); Alkaline Phosphatase 60 U/L (46-116); Anion Gap 11 (5-15); BUN/Creatinine Ratio 23.8 (10.0-20.0); Blood Urea Nitrogen 19 mg/dL (9-23); Calcium 9.1 mg/dL (8.7-10.4); Carbon Dioxide 26 mmol/L (20-31); Chloride 102 mmol/L (98-107); Potassium 4.1 mmol/L (3.5-5.1); Sodium 139 mmol/L (136-145); Triglycerides 85 mg/dL (< 150)
[2025-01-20 09:03] LABS: Total Protein 7.1 g/dL (5.7-8.2)
[2025-01-20 09:04] LABS: Albumin 4.8 g/dL (3.2-4.8); Bilirubin, Direct 0.2 mg/dL (<0.3); Bilirubin, Total 0.6 mg/dL (0.2-1.0); Cholesterol 115 mg/dL (< 200); HDL Cholesterol 44 mg/dL (40-59)
[2025-01-20 09:05] LABS: Glucose 116 mg/dL (74-106)
== END 2025-01-20 17:00 | disposition home or self-care (01) ==
LOC: LAB 08:13
PROVIDERS: ATTEND Internal Medicine
DX: E78.5 Hyperlipidemia, unspecified (principal); E11.69 Type 2 diabetes mellitus with other specified complication
CPT/HCPCS: 36415; 80053; 80061; 80076; 83036